=== PATIENT | male | born 1955 | race American Indian/Alaskan Native ===

== ENCOUNTER 2019-03-14 14:41 | Inpatient (IN) | payer MEDICARE, OTHER ==
[2019-03-14] MEDS ORDERED: ATIVAN ONE (14:53)
--- NOTE | 2019-03-14 15:06 | Emergency Department Report ---
ED General Adult HPI - General Chief complaint: Neuro Symptoms/Deficit Stated complaint: SEIZURE/ACUTE Time Seen by Provider: 03/14/19 14:55 Source: patient Mode of arrival: Stretcher Limitations: No Limitations - History of Present Illness Initial comments: 63 y.o. male with history of prostate cancer presents after EMS was called up to patient apparently had a seizure while at the [facility]. Upon arrival of EMS patient was initially conversational stating that he had just recently been to radiation for his prostate cancer. Patient stated he had no history of seizures. EMS states that patient's blood glucose was 600 and patient was also noted to be hypotensive. Upon arrival here in emergency department patient became nonverbal. Patient then became verbal but was slow to respond and complained of a headache and states he is unable to lift his arms or legs off the bed. - Related Data Allergies Allergy/AdvReac Type Severity Reaction Status Date / Time No Known Allergies Allergy Unverified 03/14/19 14:56 ED Review of Systems ROS: Stated complaint: SEIZURE/ACUTE Other details as noted in HPI Constitutional: denies: chills, fever Eyes: denies: eye pain, eye discharge, vision change ENT: denies: ear pain, throat pain Respiratory: denies: cough, shortness of breath, wheezing Cardiovascular: denies: chest pain, palpitations Endocrine: no symptoms reported Gastrointestinal: denies: abdominal pain, nausea, diarrhea Genitourinary: denies: urgency, dysuria Musculoskeletal: denies: back pain, joint swelling, arthralgia Skin: denies: rash, lesions Neurological: headache, weakness Psychiatric: denies: anxiety, depression Hematological/Lymphatic: denies: easy bleeding, easy bruising ED Physical Exam - General Limitations: No Limitations General appearance: other (awake uncomfortable mild distress) - Head Head exam: Present: atraumatic, normocephalic - Eye Eye exam: Present: normal appearance - ENT ENT exam: Present: mucous membranes dry - Neck Neck exam: Present: normal inspection - Respiratory Respiratory exam: Present: normal lung sounds bilaterally. Absent: respiratory distress - Cardiovascular Cardiovascular Exam: Present: regular rate, normal rhythm. Absent: systolic murmur, diastolic murmur, rubs, gallop - GI/Abdominal GI/Abdominal exam: Present: soft, normal bowel sounds - Rectal Rectal exam: Present: deferred - Extremities Exam Extremities exam: Present: normal inspection - Back Exam Back exam: Present: normal inspection - Neurological Exam Neurological exam: Present: alert, oriented X3, CN II-XII intact - Expanded Neurological Exam Expanded Patient oriented to: Present: person, place, time Cranial nerves: EOM's Intact: Normal, Facial Sensation: Normal, Facial Palsy with Forehead Movement: Normal Cerebellar function: Finger to Nose: Abnormal Right, Abnormal Left (unable to lift upper extremities to assess) Sensory exam: Upper Extremity Light Touch: Normal, Lower Extremity Light Touch: Normal Motor strength exam: RUE: 3 (patient states that he is unable to lift upper or lower extremities), LUE: 3, RLE: 3, LLE: 3 Best Eye Response (Joan): (4) open spontaneously Best Motor Response ([place]): (6) obeys commands Best Verbal Response (Joan): (5) oriented Joan Total: 15 - Psychiatric Psychiatric exam: Present: normal affect, normal mood - Skin Skin exam: Present: warm, dry, intact, normal color. Absent: rash ED Course Vital Signs 03/14/19 03/14/19 03/14/19 15:09 15:30 16:00 Temperature 98.0 F Pulse Rate 89 62 Respiratory 16 16 Rate Blood Pressure Blood Pressure 106/66 97/59 [Right] O2 Sat by Pulse 98 97 Oximetry 03/14/19 03/14/19 03/14/19 17:00 18:13 19:20 Temperature 98.1 F Pulse Rate 66 63 68 Respiratory 16 13 17 Rate Blood Pressure 120/79 Blood Pressure 102/66 121/76 [Right] O2 Sat by Pulse 98 98 99 Oximetry ED Medical Decision Making - Lab Data Result diagrams: 03/14/19 15:28 03/14/19 15:28 - EKG Data EKG shows normal: sinus rhythm Rate: normal - EKG Data When compared to previous EKG there are: no significant change - Medical Decision Making Patient presents initially with nonverbal status and inability to move his upper extremities or lower extremities. Patient was evaluated by telephone neurology. Patient was thought not to be a TPA candidate. About was that the patient can be admitted for seizure versus CVA workup. Patient also noted to be a new-onset diabetic. Patient was given fluid hydration while here in emergency department. Patient currently is oriented to person place and time and in no acute distress. - Differential Diagnosis dehydration; electrolyte abnormalities; seizures; intracranial bleed Critical Care Time: Yes Critical care time in (mins) excluding proc time.: 38 Critical care attestation.: If time is entered above; I have spent that time in minutes in the direct care of this critically ill patient, excluding procedure time. Critical time includes time spent on direct bedside care, physician consultation, and frequent reassessments. ED Disposition Clinical Impression: Seizure, Diabetes mellitus with hyperglycemia Disposition: OP ADMIT IP TO THIS HOSP Is pt being admited?: Yes Condition: Stable Instructions: Diabetes Mellitus Type 2 in Adults (ED) Referrals: PRIMARY CARE, [Primary Care Provider] - 3-5 Days Time of Disposition: 21:04 Print Language: GERMAN
[2019-03-14] MEDS ORDERED: NACL 0.9% 1000 ML 1,000 ML IV ONE ×2 (15:11→15:13)
[2019-03-14] MEDS ORDERED: HumuLIN R IV ONE (15:13)
--- NOTE | 2019-03-14 15:30 | Cat Scan Report ---
CT HEAD WITHOUT CONTRAST INDICATION / CLINICAL INFORMATION: MAIN: Stroke symptoms STROKE [id number]. TECHNIQUE: Axial imaging performed from the skull apex through the skull base without the use of cont rast. Sagittal and coronal reformatted images. All CT scans at this location are performed using CT dose reduction for ALARA by means of automated exposure control. COMPARISON: None available. FINDINGS: CEREBRAL PARENCHYMA: No significant abnormality. No acute territorial infarct. HEMORRHAGE: None. EXTRA-AXIAL SPACES: Normal in size and morphology for the patient's age. VENTRICULAR SYSTEM: Normal in size and morphology for the patient's age. MIDLINE SHIFT OR HERNIATION: None. CEREBELLUM / BRAINSTEM: No significant abnormality. CALVARIUM: No significant abnormality. ORBITS: Normal as visualized. PARANASAL SINUSES / MASTOID AIR CELLS: Normal as visualized. SOFT TISSUES of HEAD: No significant abnormality. ADDITIONAL FINDINGS: None. IMPRESSION: No acute intracranial abnormality. These findings were discussed with Dr. Bejarano in the emergency department at 1524 hours EST. Signer Name: Daniel Cates Jr, MD Signed: 03/14/2019 3:25 PM Workstation Name: [id number]
--- NOTE | 2019-03-14 15:33 | Emergency Department Report ---
ED Neuro Deficit HPI - General Chief Complaint: Neuro Symptoms/Deficit Stated Complaint: SEIZURE/ACUTE Time Seen by Provider: 03/14/19 14:55 Source: patient Mode of arrival: Stretcher Limitations: No Limitations - History of Present Illness Initial Comments: [employer] [facility] Date of Service: 03/14/2019 14:57:28 Impression: RO Acute Ischemic Stroke Comments: acute onset difficulty speaking after a spell while at the [facility] described as a seizure - he is slow but able to speak. DDx seizure with post ictal state vs encephalopathy. Recommend admission for stroke/seizure workup. Mechanism of Stroke: Possible Thromboembolic Possible Cardioembolic Small Vessel Disease Metrics: Last Known Well: 03/14/2019 15:00:00 [employer] Notification Time: 03/14/2019 14:56:05 Arrival Time: 03/14/2019 14:41:00 Stamp Time: 03/14/2019 14:57:28 Time First Login Attempt: 03/14/2019 15:02:39 Video Start Time: 03/14/2019 15:02:39 Symptoms: difficulty speaking NIHSS Start Assessment Time: 03/14/2019 15:16:34 Patient is not a candidate for tPA. Patient was not deemed candidate for tPA thrombolytics because of low suspicion for stroke; symptoms nearly resolved.. Video End Time: 03/14/2019 15:25:03 CT head showed no acute hemorrhage or acute core infarct. CT head was reviewed. Advanced imaging was not obtained as the presentation was not suggestive of Large Vessel Occlusive Disease. ER physician notified of the decision on thrombolytics management. Our recommendations are outlined below. Recommendations: start ASA if CT head is neg for hemorrhage. Recommended Scan: MRI Head MRA Head and Neck Without Contrast When Available - Stroke Protocol Lipid Panel to Be Obtained, if Not Done in the Last Three Months Therapies: Physical Therapy, Occupational Therapy, Speech Therapy Assessment When Applicable Dysphaghia Screen: Swallow Evaluation, Bedside NPO Until Swallow Evaluation DVT prophylaxis: Lovenox or LMW Heparin Disposition: Follow up with Teleneurology Follow up Sign Out: Discussed with Emergency Department Provider History of Present Illness: Patient is a 63 years old Male. Patient was brought by EMS for symptoms of difficulty speaking 63 yo man with a hx of prostate cancer who was witness to have a convulsion while at the [facility]. No reported hx of seizures. EMS was called and he was intially able to speak, but upon arrival to the ED he became nonverbal. No lateralizing weakness. He takes no blood thinners. CT head showed no acute hemorrhage or acute core infarct. CT head was reviewed. Examination: 1A: Level of Consciousness - Alert; keenly responsive + 0 1B: Ask Month and Age - Both Questions Right + 0 1C: Blink Eyes & Squeeze Hands - Performs Both Tasks + 0 2: Test Horizontal Extraocular Movements - Normal + 0 3: Test Visual Aviles - No Visual Loss + 0 4: Test Facial Palsy (Use Grimace if Obtunded) - Normal symmetry + 0 5A: Test Left Arm Motor Drift - Drift, but doesn't hit bed + 1 5B: Test Right Arm Motor Drift - Drift, but doesn't hit bed + 1 6A: Test Left Leg Motor Drift - Drift, but doesn't hit bed + 1 6B: Test Right Leg Motor Drift - Drift, but doesn't hit bed + 1 7: Test Limb Ataxia (FNF/Heel-Martinez) - No Ataxia + 0 8: Test Sensation - Normal; No sensory loss + 0 9: Test Language/Aphasia - Normal; No aphasia + 0 10: Test Dysarthria - Normal + 0 11: Test Extinction/Inattention - No abnormality + 0 NIHSS Score: 4 Patient was informed the Neurology Consult would happen via TeleHealth consult by way of interactive audio and video telecommunications and consented to receiving care in this manner. Due to the immediate potential for life-threatening deterioration due to underlying acute neurologic illness, I spent 35 minutes providing critical care. This time includes time for face to face visit via telemedicine, review of medical records, imaging studies and discussion of findings with providers, the patient and/or family. Dr Joe Wood [employer] - Related Data Allergies/Adverse Reactions: Allergies Allergy/AdvReac Type Severity Reaction Status Date / Time No Known Allergies Allergy Unverified 03/14/19 14:56 ED Review of Systems ROS: Stated complaint: SEIZURE/ACUTE Other details as noted in HPI Constitutional: denies: chills, fever Eyes: denies: eye pain, eye discharge, vision change ENT: denies: ear pain, throat pain Respiratory: denies: cough, shortness of breath, wheezing Cardiovascular: denies: chest pain, palpitations Endocrine: no symptoms reported Gastrointestinal: denies: abdominal pain, nausea, diarrhea Genitourinary: denies: urgency, dysuria Musculoskeletal: denies: back pain, joint swelling, arthralgia Skin: denies: rash, lesions Neurological: headache, weakness Psychiatric: denies: anxiety, depression Hematological/Lymphatic: denies: easy bleeding, easy bruising ED Neuro Physical Exam - General Limitations: No Limitations General appearance: other (awake uncomfortable mild distress) Suspected Stroke: Yes - NIHSS Assessment Interval: Baseline 1a. Level of Consciousness: alert/keenly responsive 1b. LOC Questions: answers both correctly 1c. LOC Commands: performs tasks correctly 2. Best Gaze: normal 3. Visual: no visual loss 4. Facial Palsy: normal symmetrical movement 5b. Motor Arm Right: drift 5a. Motor Arm Left: drift 6a. Motor Leg Left: drift 6b. Motor Leg Right: drift 7. Limb Ataxia: absent 8. Sensory: normal 9. Best Language: no aphasia 10. Dysarthria: normal 11. Extinction/Inattention: no abnormality Total Score: 4 Stroke Severity: Minor Stroke ED Course Vital Signs 03/14/19 15:09 Pulse Rate 89 Respiratory 16 Rate Blood Pressure 106/66 [Right] O2 Sat by Pulse 98 Oximetry Critical care attestation.: If time is entered above; I have spent that time in minutes in the direct care of this critically ill patient, excluding procedure time. ED Disposition Clinical Impression: Seizure Disposition: DC-09 OP ADMIT IP TO THIS HOSP Is pt being admited?: Yes Condition: Stable Referrals: PRIMARY CARE, [Primary Care Provider] - 3-5 Days
[2019-03-14 15:43] LABS: Hematocrit 41.2 % (35.5-45.6); Hemoglobin 14.1 gm/dl (11.8-15.2); Mean Corpuscular HGB Conc 34 % (32-34); Mean Corpuscular Volume 88 fl (84-94); Platelet Count 197 K/mm3 (140-440); Red Blood Count 4.66 M/mm3 (3.65-5.03); Red Cell Distribution Width 13.8 % (13.2-15.2)
[2019-03-14 15:54] LABS: INR 1.01 (0.87-1.13)
[2019-03-14 15:55] LABS: Partial Thromboplastin Time 22.8 Sec. (24.2-36.6)
[2019-03-14 15:56] LABS: Thrombin Time 20.3 Sec. (15.1-19.6)
[2019-03-14 16:53] LABS: Band Neutrophils # (Manual) 0.1 K/mm3; Basophils % (Manual) 0 % (0.0-1.8); Total Cells Counted 100
[2019-03-14 16:54] LABS: Ovalocytes Few; Poikilocytosis Few
[2019-03-14 17:20] LABS: Creatine Kinase MB 1.9 ng/mL (0.0-4.0)
[2019-03-14 18:07] LABS: Alanine Aminotransferase 48 units/L (7-56); Albumin 4.4 g/dL (3.9-5); BUN/Creatinine Ratio 24; Blood Urea Nitrogen 19 mg/dL (9-20); Calcium 10.2 mg/dL (8.4-10.2); Hemolysis Index 5
--- NOTE | 2019-03-14 18:24 | XRay Report ---
CHEST 1 VIEW INDICATION: chest pain. COMPARISON: None. FINDINGS: Support devices: None. Heart: Normal. Lungs/Pleura: No acute pulmonary or pleural findings. IMPRESSION: 1. No acute findings. Signer Name: Roshan Sinha MD Signed: 03/14/2019 6:19 PM Workstation Name: [id number]
[2019-03-14] MEDS ORDERED: MILK OF MAGNESIA PO PRN ×2 (20:40)
[2019-03-14] MEDS ORDERED: PHENERGAN PR PRN (20:40)
[2019-03-14] MEDS ORDERED: SODIUM CHLORIDE FLUSH SYRINGE 10 ML IV PRN ×2 (20:40)
[2019-03-14] MEDS ORDERED: TYLENOL PO PRN ×2 (20:40)
[2019-03-14] MEDS ORDERED: REGLAN PO PRN (20:40)
[2019-03-14] MEDS ORDERED: DULCOLAX PR PRN (20:40)
[2019-03-14] MEDS ORDERED: ZOFRAN IV PRN (20:40)
--- NOTE | 2019-03-14 20:53 | History and Physical Report ---
<JANAK MAKI - Last Filed: 03/15/19 00:05> History of Present Illness Date of examination: 03/14/19 Date of admission: 03/14/19 Chief complaint: Syncope History of present illness: Pt is a 63 year old male with PMHx of prostate cancer (diagnosed in 07/16, s/p chemo, on going radiation), HTN, HDL who was brought to the ER by EMS after a syncopal episode while in a [employer] shop. Pt states that he was on the chair having a hair cut when he felt very dizzy, when he gained consciousness, there were paramedics all over him. Pt states that he doesn't recall what happened or how long he was unconscious, EMS reports hyperglycemia (BG 600) and low blood pressure. Pt admits to a history of seizure disorder and states that he was very disoriented and confuse when he woke up. Pt states that he completed 22 days of radiation therapy today at [facility] just prior to the incidence. Pt states that he never had a similar episode of LOC, denies bladder or bowel incontinence reported, he denies palpitation, denies chest pain, denies diaphoresis, denies nausea, denies vomiting, denies recent illness. In the ER, pt c/o headache and weakness, his speech was slurred, a CT scan of the brain that was negative, teleneurology was consulted and recommended admission to r/o stroke and seizure. Past History Past Medical History: diabetes (new onset), hypertension, hyperlipidemia, seizures, other (neuropathy, prostate ca) Past Surgical History: No surgical history Social history: no significant social history Family history: no significant family history Medications and Allergies Allergies Allergy/AdvReac Type Severity Reaction Status Date / Time No Known Allergies Allergy Unverified 03/14/19 14:56 Home Medications Medication Instructions Recorded Confirmed Last Taken Type Gabapentin [Neurontin] 800 mg PO TID 03/14/19 03/14/19 Unknown History Lisinopril [Zestril] 20 mg PO QDAY 03/14/19 03/14/19 Unknown History Rosuvastatin Calcium 40 mg PO BID 03/14/19 03/14/19 Unknown History Review of Systems Neurological: weakness, syncope Exam - Constitutional Vitals: Temp Pulse Resp BP Pulse Ox 98.1 F 68 17 121/76 99 03/14/19 19:20 03/14/19 19:20 03/14/19 19:20 03/14/19 19:20 03/14/19 19:20 General appearance: Present: no acute distress - EENT Eyes: Present: EOM intact ENT: hearing intact - Neck Neck: Present: normal ROM - Respiratory Respiratory effort: normal Respiratory: bilateral: CTA - Cardiovascular Rhythm: regular Heart Sounds: Present: S1 & S2 - Extremities Extremities: no ischemia, No edema Peripheral Pulses: within normal limits - Abdominal General gastrointestinal: Present: non-tender, non-distended Male genitourinary: Present: deferred - Rectal Rectal Exam: deferred - Integumentary Integumentary: Present: warm, dry - Musculoskeletal Musculoskeletal: strength equal bilaterally - Psychiatric Psychiatric: cooperative - Neurologic Neurologic: moves all extremities Results - Labs CBC & Chem 7: 03/14/19 15:28 03/14/19 15:28 Labs: Laboratory Last Values WBC 5.8 K/mm3 (4.5-11.0) 03/14/19 15:28 RBC 4.66 M/mm3 (3.65-5.03) 03/14/19 15:28 Hgb 14.1 gm/dl (11.8-15.2) 03/14/19 15:28 Hct 41.2 % (35.5-45.6) 03/14/19 15:28 MCV 88 fl (84-94) 03/14/19 15:28 MCH 30 pg (28-32) 03/14/19 15:28 MCHC 34 % (32-34) 03/14/19 15:28 RDW 13.8 % (13.2-15.2) 03/14/19 15:28 Plt Count 197 K/mm3 (140-440) 03/14/19 15:28 Add Manual Diff Complete 03/14/19 15:28 Total Counted 100 03/14/19 15:28 Seg Neuts % (Manual) 67.0 % (40.0-70.0) 03/14/19 15:28 Band Neutrophils % 2.0 % 03/14/19 15:28 Lymphocytes % (Manual) 19.0 % (13.4-35.0) 03/14/19 15:28 Reactive Lymphs % (Man) 0 % 03/14/19 15:28 Monocytes % (Manual) 7.0 % (0.0-7.3) 03/14/19 15:28 Eosinophils % (Manual) 3.0 % (0.0-4.3) 03/14/19 15:28 Basophils % (Manual) 0 % (0.0-1.8) 03/14/19 15:28 Metamyelocytes % 2.0 % 03/14/19 15:28 Myelocytes % 0 % 03/14/19 15:28 Promyelocytes % 0 % 03/14/19 15:28 Blast Cells % 0 % 03/14/19 15:28 Nucleated RBC % Not Reportable 03/14/19 15:28 Seg Neutrophils # Man 3.9 K/mm3 (1.8-7.7) 03/14/19 15:28 Band Neutrophils # 0.1 K/mm3 03/14/19 15:28 Lymphocytes # (Manual) 1.1 K/mm3 (1.2-5.4) L 03/14/19 15:28 Abs React Lymphs (Man) 0.0 K/mm3 03/14/19 15:28 Monocytes # (Manual) 0.4 K/mm3 (0.0-0.8) 03/14/19 15:28 Eosinophils # (Manual) 0.2 K/mm3 (0.0-0.4) 03/14/19 15:28 Basophils # (Manual) 0.0 K/mm3 (0.0-0.1) 03/14/19 15:28 Metamyelocytes # 0.1 K/mm3 03/14/19 15:28 Myelocytes # 0.0 K/mm3 03/14/19 15:28 Promyelocytes # 0.0 K/mm3 03/14/19 15:28 Blast Cells # 0.0 K/mm3 03/14/19 15:28 WBC Morphology Not Reportable 03/14/19 15:28 Hypersegmented Neuts Not Reportable 03/14/19 15:28 Hyposegmented Neuts Not Reportable 03/14/19 15:28 Hypogranular Neuts Not Reportable 03/14/19 15:28 Smudge Cells Not Reportable 03/14/19 15:28 Toxic Granulation Not Reportable 03/14/19 15:28 Toxic Vacuolation Not Reportable 03/14/19 15:28 Dohle Bodies Not Reportable 03/14/19 15:28 Pelger-Huet Anomaly Not Reportable 03/14/19 15:28 Jhonny Rods Not Reportable 03/14/19 15:28 Platelet Estimate Appears normal 03/14/19 15:28 Clumped Platelets Not Reportable 03/14/19 15:28 Plt Clumps, EDTA Not Reportable 03/14/19 15:28 Large Platelets Not Reportable 03/14/19 15:28 Giant Platelets Not Reportable 03/14/19 15:28 Platelet Satelliting Not Reportable 03/14/19 15:28 Plt Morphology Comment Not Reportable 03/14/19 15:28 RBC Morphology Not Reportable 03/14/19 15:28 Dimorphic RBCs Not Reportable 03/14/19 15:28 Polychromasia Not Reportable 03/14/19 15:28 Hypochromasia Not Reportable 03/14/19 15:28 Poikilocytosis Few 03/14/19 15:28 Anisocytosis Not Reportable 03/14/19 15:28 Microcytosis Not Reportable 03/14/19 15:28 Macrocytosis Not Reportable 03/14/19 15:28 Spherocytes Not Reportable 03/14/19 15:28 Pappenheimer Bodies Not Reportable 03/14/19 15:28 Sickle Cells Not Reportable 03/14/19 15:28 Target Cells Not Reportable 03/14/19 15:28 Tear Drop Cells Not Reportable 03/14/19 15:28 Ovalocytes Few 03/14/19 15:28 Helmet Cells Not Reportable 03/14/19 15:28 Con[place]-Half Moon Bodies Not Reportable 03/14/19 15:28 [place] Rings Not Reportable 03/14/19 15:28 [place] Cells Not Reportable 03/14/19 15:28 Bite Cells Not Reportable 03/14/19 15:28 Crenated Cell Not Reportable 03/14/19 15:28 Elliptocytes Not Reportable 03/14/19 15:28 Acanthocytes (Spur) Not Reportable 03/14/19 15:28 Rouleaux Not Reportable 03/14/19 15:28 Hemoglobin C Crystals Not Reportable 03/14/19 15:28 Schistocytes Not Reportable 03/14/19 15:28 Malaria parasites Not Reportable 03/14/19 15:28 Jaleel Bodies Not Reportable 03/14/19 15:28 Hem Pathologist Commnt No 03/14/19 15:28 PT 13.0 Sec. (12.2-14.9) 03/14/19 15:28 INR 1.01 (0.87-1.13) 03/14/19 15:28 APTT 22.8 Sec. (24.2-36.6) L 03/14/19 15:28 Thrombin Time 20.3 Sec. (15.1-19.6) H 03/14/19 15:28 Sodium 133 mmol/L (137-145) L 03/14/19 15:28 Potassium 4.9 mmol/L (3.6-5.0) 03/14/19 15:28 Chloride 96.2 mmol/L (98-107) L 03/14/19 15:28 Carbon Dioxide 20 mmol/L (22-30) L 03/14/19 15:28 Anion Gap 22 mmol/L 03/14/19 15:28 BUN 19 mg/dL (9-20) 03/14/19 15:28 Creatinine 0.8 mg/dL (0.8-1.5) 03/14/19 15:28 Estimated GFR > 60 ml/min 03/14/19 15:28 BUN/Creatinine Ratio 24 % 03/14/19 15:28 Glucose 480 mg/dL (75-100) H 03/14/19 15:28 POC Glucose 342 (70-105) H 03/14/19 17:18 Calcium 10.2 mg/dL (8.4-10.2) 03/14/19 15:28 Total Bilirubin 0.60 mg/dL (0.1-1.2) 03/14/19 15:28 AST 28 units/L (5-40) 03/14/19 15:28 ALT 48 units/L (7-56) 03/14/19 15:28 Alkaline Phosphatase 91 units/L (35-129) 03/14/19 15:28 Total Creatine Kinase 142 units/L (55-170) 03/14/19 15:28 CK-MB (CK-2) 1.9 ng/mL (0.0-4.0) 03/14/19 15:28 CK-MB (CK-2) Rel Index 1.3 (0-4) 03/14/19 15:28 Troponin T < 0.010 ng/mL (0.00-0.029) 03/14/19 15:28 Total Protein 7.9 g/dL (6.3-8.2) 03/14/19 15:28 Albumin 4.4 g/dL (3.9-5) 03/14/19 15:28 Albumin/Globulin Ratio 1.3 % 03/14/19 15:28 Plasma/Serum Alcohol < 0.01 % (0-0.07) 03/14/19 15:28 Assessment and Plan Assessment and plan: 1. Acute TIA/ r/o CVA vr seizure disorder 2. Prostate cancer (s/p chemo, radiation) 3. Dehydration 4. Mild VEE (due to dehydration 5. HONKA (blood glucose, New onset DM) 6. Hypotension 7. H/o seizure disorder 8. H/o HTN 9. HDL (on statin) 10. Neuropathy Plan: Pt is admitted for TIA to r/o stroke Stroke prtocol was initiated Start IVF for hydration renal transfusion Recheck BMP in am Glycemic management with insulin per sliding scale Resume home meds including hy dose statin, ASA Supportive care DVT prophylaxis with SD Advance Directives: Yes VTE prophylaxis?: Mechanical Plan of care discussed with patient/family: Yes <JC LUGO - Last Filed: 03/15/19 01:52> History of Present Illness Date of admission: 03/14/19 20:40 Medications and Allergies Active Meds: Active Medications Acetaminophen (Tylenol) 650 mg PO Q4H PRN PRN Reason: Pain, Mild (1-3) Aspirin (Aspirin) 325 mg PO QDAY [facility] Last Admin: 03/14/19 21:10 Dose: 325 mg Documented by: Atorvastatin Calcium (Lipitor) 40 mg PO QHS [facility] Bisacodyl (Dulcolax) 10 mg [place] QDAY PRN PRN Reason: Constipation Famotidine (Pepcid) 20 mg IV BID [facility] Last Admin: 03/14/19 23:20 Dose: 20 mg Documented by: Gabapentin (Neurontin) 800 mg PO TID [facility] Insulin Glargine (Lantus) 20 units SUB-Q QHS [facility] Last Admin: 03/14/19 23:48 Dose: 20 units Documented by: Insulin Human Lispro (Humalog) 0 unit SUB-Q [facility]; Protocol Last Admin: 03/14/19 23:19 Dose: 10 unit Documented by: Lisinopril (Zestril) 20 mg PO QDAY [facility] Magnesium Hydroxide (Milk Of Magnesia) 30 ml PO Q4H PRN PRN Reason: Constipation Metoclopramide HCl (Reglan) 10 mg PO Q6H PRN PRN Reason: Nausea And Vomiting Ondansetron HCl (Zofran) 4 mg IV Q8H PRN PRN Reason: Nausea And Vomiting Promethazine HCl (Phenergan) 25 mg [place] Q6H PRN PRN Reason: Nausea And Vomiting Sodium Chloride (Sodium Chloride Flush Syringe 10 Ml) 10 ml IV BID [facility] Last Admin: 03/14/19 23:20 Dose: 10 ml Documented by: Sodium Chloride (Sodium Chloride Flush Syringe 10 Ml) 10 ml IV PRN PRN PRN Reason: LINE FLUSH Sodium Chloride (Sodium Chloride Flush Syringe 10 Ml) 10 ml IV PRN PRN PRN Reason: LINE FLUSH Exam - Constitutional Vitals: Temp Pulse Resp BP Pulse Ox 97.7 F 59 L 18 126/70 98 03/14/19 22:28 03/14/19 22:28 03/14/19 22:28 03/14/19 22:28 03/14/19 22:28 Results - Labs CBC & Chem 7: 03/14/19 15:28 03/14/19 15:28 Labs: Laboratory Last Values WBC 5.8 K/mm3 (4.5-11.0) 03/14/19 15:28 RBC 4.66 M/mm3 (3.65-5.03) 03/14/19 15:28 Hgb 14.1 gm/dl (11.8-15.2) 03/14/19 15:28 Hct 41.2 % (35.5-45.6) 03/14/19 15:28 MCV 88 fl (84-94) 03/14/19 15:28 MCH 30 pg (28-32) 03/14/19 15:28 MCHC 34 % (32-34) 03/14/19 15:28 RDW 13.8 % (13.2-15.2) 03/14/19 15:28 Plt Count 197 K/mm3 (140-440) 03/14/19 15:28 Add Manual Diff Complete 03/14/19 15:28 Total Counted 100 03/14/19 15:28 Seg Neuts % (Manual) 67.0 % (40.0-70.0) 03/14/19 15:28 Band Neutrophils % 2.0 % 03/14/19 15:28 Lymphocytes % (Manual) 19.0 % (13.4-35.0) 03/14/19 15:28 Reactive Lymphs % (Man) 0 % 03/14/19 15:28 Monocytes % (Manual) 7.0 % (0.0-7.3) 03/14/19 15:28 Eosinophils % (Manual) 3.0 % (0.0-4.3) 03/14/19 15:28 Basophils % (Manual) 0 % (0.0-1.8) 03/14/19 15:28 Metamyelocytes % 2.0 % 03/14/19 15:28 Myelocytes % 0 % 03/14/19 15:28 Promyelocytes % 0 % 03/14/19 15:28 Blast Cells % 0 % 03/14/19 15:28 Nucleated RBC % Not Reportable 03/14/19 15:28 Seg Neutrophils # Man 3.9 K/mm3 (1.8-7.7) 03/14/19 15:28 Band Neutrophils # 0.1 K/mm3 03/14/19 15:28 Lymphocytes # (Manual) 1.1 K/mm3 (1.2-5.4) L 03/14/19 15:28 Abs React Lymphs (Man) 0.0 K/mm3 03/14/19 15:28 Monocytes # (Manual) 0.4 K/mm3 (0.0-0.8) 03/14/19 15:28 Eosinophils # (Manual) 0.2 K/mm3 (0.0-0.4) 03/14/19 15:28 Basophils # (Manual) 0.0 K/mm3 (0.0-0.1) 03/14/19 15:28 Metamyelocytes # 0.1 K/mm3 03/14/19 15:28 Myelocytes # 0.0 K/mm3 03/14/19 15:28 Promyelocytes # 0.0 K/mm3 03/14/19 15:28 Blast Cells # 0.0 K/mm3 03/14/19 15:28 WBC Morphology Not Reportable 03/14/19 15:28 Hypersegmented Neuts Not Reportable 03/14/19 15:28 Hyposegmented Neuts Not Reportable 03/14/19 15:28 Hypogranular Neuts Not Reportable 03/14/19 15:28 Smudge Cells Not Reportable 03/14/19 15:28 Toxic Granulation Not Reportable 03/14/19 15:28 Toxic Vacuolation Not Reportable 03/14/19 15:28 Dohle Bodies Not Reportable 03/14/19 15:28 Pelger-Huet Anomaly Not Reportable 03/14/19 15:28 Jhonny Rods Not Reportable 03/14/19 15:28 Platelet Estimate Appears normal 03/14/19 15:28 Clumped Platelets Not Reportable 03/14/19 15:28 Plt Clumps, EDTA Not Reportable 03/14/19 15:28 Large Platelets Not Reportable 03/14/19 15:28 Giant Platelets Not Reportable 03/14/19 15:28 Platelet Satelliting Not Reportable 03/14/19 15:28 Plt Morphology Comment Not Reportable 03/14/19 15:28 RBC Morphology Not Reportable 03/14/19 15:28 Dimorphic RBCs Not Reportable 03/14/19 15:28 Polychromasia Not Reportable 03/14/19 15:28 Hypochromasia Not Reportable 03/14/19 15:28 Poikilocytosis Few 03/14/19 15:28 Anisocytosis Not Reportable 03/14/19 15:28 Microcytosis Not Reportable 03/14/19 15:28 Macrocytosis Not Reportable 03/14/19 15:28 Spherocytes Not Reportable 03/14/19 15:28 Pappenheimer Bodies Not Reportable 03/14/19 15:28 Sickle Cells Not Reportable 03/14/19 15:28 Target Cells Not Reportable 03/14/19 15:28 Tear Drop Cells Not Reportable 03/14/19 15:28 Ovalocytes Few 03/14/19 15:28 Helmet Cells Not Reportable 03/14/19 15:28 [place]-Half [place] Bodies Not Reportable 03/14/19 15:28 [place] Rings Not Reportable 03/14/19 15:28 [place] Cells Not Reportable 03/14/19 15:28 Bite Cells Not Reportable 03/14/19 15:28 Crenated Cell Not Reportable 03/14/19 15:28 Elliptocytes Not Reportable 03/14/19 15:28 Acanthocytes (Spur) Not Reportable 03/14/19 15:28 Rouleaux Not Reportable 03/14/19 15:28 Hemoglobin C Crystals Not Reportable 03/14/19 15:28 Schistocytes Not Reportable 03/14/19 15:28 Malaria parasites Not Reportable 03/14/19 15:28 Jaleel Bodies Not Reportable 03/14/19 15:28 Hem Pathologist Commnt No 03/14/19 15:28 PT 13.0 Sec. (12.2-14.9) 03/14/19 15:28 INR 1.01 (0.87-1.13) 03/14/19 15:28 APTT 22.8 Sec. (24.2-36.6) L 03/14/19 15:28 Thrombin Time 20.3 Sec. (15.1-19.6) H 03/14/19 15:28 Sodium 133 mmol/L (137-145) L 03/14/19 15:28 Potassium 4.9 mmol/L (3.6-5.0) 03/14/19 15:28 Chloride 96.2 mmol/L (98-107) L 03/14/19 15:28 Carbon Dioxide 20 mmol/L (22-30) L 03/14/19 15:28 Anion Gap 22 mmol/L 03/14/19 15:28 BUN 19 mg/dL (9-20) 03/14/19 15:28 Creatinine 0.8 mg/dL (0.8-1.5) 03/14/19 15:28 Estimated GFR > 60 ml/min 03/14/19 15:28 BUN/Creatinine Ratio 24 % 03/14/19 15:28 Glucose 480 mg/dL (75-100) H 03/14/19 15:28 POC Glucose 401 (70-105) H 03/14/19 22:17 Calcium 10.2 mg/dL (8.4-10.2) 03/14/19 15:28 Total Bilirubin 0.60 mg/dL (0.1-1.2) 03/14/19 15:28 AST 28 units/L (5-40) 03/14/19 15:28 ALT 48 units/L (7-56) 03/14/19 15:28 Alkaline Phosphatase 91 units/L (35-129) 03/14/19 15:28 Total Creatine Kinase 142 units/L (55-170) 03/14/19 15:28 CK-MB (CK-2) 1.9 ng/mL (0.0-4.0) 03/14/19 15:28 CK-MB (CK-2) Rel Index 1.3 (0-4) 03/14/19 15: Troponin T < 0.010 ng/mL (0.00-0.029) 03/14/19 15:28 Total Protein 7.9 g/dL (6.3-8.2) 03/14/19 15: Albumin 4.4 g/dL (3.9-5) 03/14/19 15: Albumin/Globulin Ratio 1.3 % 03/14/19 15:28 Urine Color Yellow (Yellow) 03/14/19 21:00 Urine Turbidity Clear (Clear) 03/14/19 21:00 Urine pH 6.0 (5.0-7.0) 03/14/19 21:00 Ur Specific [place] 1.030 (1.003-1.030) 03/14/19 21:00 Urine Protein <15 mg/dl mg/dL (Negative) 03/14/19 21:00 Urine Glucose (UA) >=500 mg/dL (Negative) 03/14/19 21:00 Urine Ketones 20 mg/dL (Negative) 03/14/19 21:00 Urine Blood Neg (Negative) 03/14/19 21:00 Urine Nitrite Neg (Negative) 03/14/19 21:00 Urine Bilirubin Neg (Negative) 03/14/19 21:00 Urine Urobilinogen < 2.0 mg/dL (<2.0) 03/14/19 21:00 Ur Leukocyte Esterase Neg (Negative) 03/14/19 21:00 Urine WBC (Auto) 1.0 /HPF (0.0-6.0) 03/14/19 21:00 Urine RBC (Auto) 2.0 /HPF (0.0-6.0) 03/14/19 21:00 Urine Bacteria (Auto) 1+ /HPF (Negative) 03/14/19 21:00 Plasma/Serum Alcohol < 0.01 % (0-0.07) 03/14/19 15:28 Assessment and Plan Assessment and plan: 63-year-old man with a history of hypertension, hyperlipidemia prostate cancer on radiation treatment comes emergency room because while he was at the [facility] he felt weak, dizzy and he was incoherent and passed out. He admits to polyuria, polydipsia. He arrived in the emergency room he had generalized weakness, unable to move his arms or legs or his entire body. Blood sugar was elevated. New-onset diabetes, symptoms less likely suggestive of CVA. Tele- neurology recommending stroke workup, start insulin, check hemoglobin A1c, consult neurology.
[2019-03-14] MEDS ORDERED: NACL 0.9% 1000 ML 1,000 ML ONE (21:02)
[2019-03-14] MEDS: ASPIRIN PO SCH (21:10)
[2019-03-14 21:47] LABS: Bacteria,Urine 1+ /HPF (Negative); Bilirubin,Urine NEG (Negative); Blood,Urine NEG (Negative); Color,Urine Yellow (Yellow); Protein,Urine <15 mg/dL mg/dL (Negative); Urobilinogen,Urine < 2.0 mg/dL (<2.0)
[2019-03-14] MEDS ORDERED: LANTUS SUB-Q SCH (23:00)
[2019-03-14] MEDS: HumaLOG SUB-Q SCH (23:19)
[2019-03-14] MEDS: PEPCID IV SCH (23:20)
[2019-03-14] MEDS: SODIUM CHLORIDE FLUSH SYRINGE 10 ML IV SCH (23:20)
[2019-03-15 05:30] LABS: Hematocrit 37.4 % (35.5-45.6); Hemoglobin 13.1 gm/dl (11.8-15.2); Mean Corpuscular HGB Conc 35 % (32-34); Mean Corpuscular Volume 88 fl (84-94); Platelet Count 165 K/mm3 (140-440); Red Blood Count 4.28 M/mm3 (3.65-5.03); Red Cell Distribution Width 13.9 % (13.2-15.2)
[2019-03-15 06:22] LABS: Chol/HDL Ratio 5.87 %
[2019-03-15] MEDS: HumaLOG SUB-Q SCH ×5 (09:09→21:48)
[2019-03-15 09:10] LABS: Band Neutrophils # (Manual) 0.1 K/mm3; Basophils % (Manual) 0 % (0.0-1.8); Platelet Clumps Few; Total Cells Counted 100
[2019-03-15 09:11] LABS: Anisocytosis 1+; Platelet Estimate Cons
[2019-03-15] MEDS: GABAPENTIN PO SCH ×3 (09:11→20:51)
[2019-03-15] MEDS: ASPIRIN PO SCH (09:11)
[2019-03-15] MEDS: PEPCID IV SCH ×2 (09:11→21:50)
[2019-03-15] MEDS: ZESTRIL PO SCH (09:11)
[2019-03-15] MEDS: SODIUM CHLORIDE FLUSH SYRINGE 10 ML IV SCH ×2 (09:12→21:50)
[2019-03-15] MEDS ORDERED: ATIVAN IV PRN (11:07)
--- NOTE | 2019-03-15 11:30 | Consultation ---
History of Present Illness Consult date: 03/15/19 History of present illness: I have dictated a consult note on this patient there is no evidence of postate cancer on the CT the radiation therapy for prostate does not include brain stronly suspect the seizure related to diabetes see blood sugar over 600 per EMS Past History Past Medical History: diabetes (new onset), hypertension, hyperlipidemia, seizures, other (neuropathy, prostate ca) Past Surgical History: No surgical history Social history: no significant social history Family history: no significant family history Medications and Allergies Allergies Allergy/AdvReac Type Severity Reaction Status Date / Time No Known Allergies Allergy Unverified 03/14/19 14:56 Home Medications Medication Instructions Recorded Confirmed Last Taken Type Gabapentin [Neurontin] 800 mg PO TID 03/14/19 03/14/19 Unknown History Lisinopril [Zestril] 20 mg PO QDAY 03/14/19 03/14/19 Unknown History Rosuvastatin Calcium 40 mg PO BID 03/14/19 03/14/19 Unknown History Active Meds: Active Medications Acetaminophen (Tylenol) 650 mg PO Q4H PRN PRN Reason: Pain, Mild (1-3) Aspirin (Aspirin) 325 mg PO QDAY [facility] Last Admin: 03/15/19 09:11 Dose: 325 mg Documented by: Atorvastatin Calcium (Lipitor) 40 mg PO QHS [facility] Bisacodyl (Dulcolax) 10 mg [place] QDAY PRN PRN Reason: Constipation Famotidine (Pepcid) 20 mg IV BID [facility] Last Admin: 03/15/19 09:11 Dose: 20 mg Documented by: Gabapentin (Neurontin) 800 mg PO TID [facility] Last Admin: 03/15/19 09:11 Dose: 800 mg Documented by: Insulin Glargine (Lantus) 8 units SUB-Q QHS [facility] Insulin Human Lispro (Humalog) 0 unit SUB-Q [facility]; Protocol Last Admin: 03/15/19 09:09 Dose: 8 unit Documented by: Lisinopril (Zestril) 20 mg PO QDAY [facility] Last Admin: 03/15/19 09:11 Dose: 20 mg Documented by: Lorazepam (Ativan) 2 mg IV Q4H PRN PRN Reason: Agitation Magnesium Hydroxide (Milk Of Magnesia) 30 ml PO Q4H PRN PRN Reason: Constipation Metoclopramide HCl (Reglan) 10 mg PO Q6H PRN PRN Reason: Nausea And Vomiting Ondansetron HCl (Zofran) 4 mg IV Q8H PRN PRN Reason: Nausea And Vomiting Promethazine HCl (Phenergan) 25 mg [place] Q6H PRN PRN Reason: Nausea And Vomiting Sodium Chloride (Sodium Chloride Flush Syringe 10 Ml) 10 ml IV BID [facility] Last Admin: 03/15/19 09:12 Dose: 10 ml Documented by: Sodium Chloride (Sodium Chloride Flush Syringe 10 Ml) 10 ml IV PRN PRN PRN Reason: LINE FLUSH Sodium Chloride (Sodium Chloride Flush Syringe 10 Ml) 10 ml IV PRN PRN PRN Reason: LINE FLUSH Physical Examination - Vital Signs Vital Signs: Vital Signs Pulse Resp BP Pulse Ox 89 16 106/66 98 03/14/19 15:09 03/14/19 15:09 03/14/19 15:09 03/14/19 15:09 Results - Laboratory Findings CBC and BMP: 03/15/19 04:43 03/14/19 15:28 Abnormal Lab Findings: Abnormal Labs 03/14/19 03/14/19 03/14/19 15:28 15:28 15:28 MCHC Lymphocytes # (Manual) 1.1 L APTT 22.8 L Thrombin Time 20.3 H Sodium 133 L Chloride 96.2 L Carbon Dioxide 20 L Glucose 480 H POC Glucose Hemoglobin A1c Triglycerides HDL Cholesterol 03/14/19 03/14/19 03/14/19 16:02 17:18 22:17 MCHC Lymphocytes # (Manual) APTT Thrombin Time Sodium Chloride Carbon Dioxide Glucose POC Glucose 382 H 342 H 401 H Hemoglobin A1c Triglycerides HDL Cholesterol 03/15/19 03/15/19 03/15/19 04:43 04:43 04:43 MCHC 35 H Lymphocytes # (Manual) APTT Thrombin Time Sodium Chloride Carbon Dioxide Glucose POC Glucose Hemoglobin A1c 12.9 H Triglycerides 236 H HDL Cholesterol 33 L 03/15/19 08:28 MCHC Lymphocytes # (Manual) APTT Thrombin Time Sodium Chloride Carbon Dioxide Glucose POC Glucose 327 H Hemoglobin A1c Triglycerides HDL Cholesterol
--- NOTE | 2019-03-15 14:33 | Magnetic Resonance Report ---
MR brain wo con INDICATION / CLINICAL INFORMATION: 63 years Male; r/o cva. TECHNIQUE: Multiplanar, multisequence MR images of the brain were obtained. Motion artifact COMPARISON: CT - 01/04/2019 FINDINGS: BRAIN / INTRACRANIAL CONTENTS: Small arachnoid cyst is seen superficial to the left paracentral lobul e-of no clinical significance. Minimal cerebral atrophy. No significant hippocampal atrophy appreciated on high-resolution coronal T 2 imaging. There are [id number] areas of increased signal intensity on FLAIR imaging in the white matter o f the cerebral hemispheres. These are nonspecific findings and may be related to microangiopathy (hyp ertension, diabetes, atherosclerosis), given the patient's age. Otherwise, no acute ischemia, acute hemorrhage, or hydrocephalus. CRANIOCERVICAL JUNCTION: No significant abnormality. VASCULAR FLOW-VOIDS: No significant abnormality. ORBITS: No significant abnormality of visualized orbits. SINUSES / MASTOIDS: No significant abnormality the visualized paranasal sinuses or mastoid air cells. ADDITIONAL FINDINGS: None. IMPRESSION: 1. No focal mass, hemorrhage, hydrocephalus, or acute ischemia. Signer Name: Estiven Barclay MD, III Signed: 03/15/2019 2:28 PM Workstation Name: [id number]
--- NOTE | 2019-03-15 14:45 | Magnetic Resonance Report ---
MR MRA/MRV head wo con INDICATION / CLINICAL INFORMATION: 63 years Male; stroke. TECHNIQUE: 3-D time of flight. NASCET type criteria used to evaluate stenoses. Mild motion artifact. COMPARISON: None available. FINDINGS: INTERNAL CAROTID ARTERIES: No significant narrowing appreciated. VERTEBROBASILAR SYSTEM: No significant narrowing appreciated. Right vertebral artery is dominant. DISTAL BRANCHES: Distal branches of the anterior, middle, and posterior cerebral arteries are fairly symmetric in appearance and number. Areas of minimal narrowing in MCA trifurcation branches and dista l JAMES branches cannot be excluded. ANEURYSM: None identified. IMPRESSION: No dominant stenosis on this MRA of the brain. Areas of mild narrowing may be present. Signer Name: Estiven Barclay MD, III Signed: 03/15/2019 2:41 PM Workstation Name: [id number]
--- NOTE | 2019-03-15 14:49 | Progress Note ---
Assessment and Plan 1. Acute syncope due to hyperglycemia - acute CVA ruled out with negative workup 2. Prostate cancer (s/p chemo, radiation) 3. Dehydration with hyperglycemia 4. Mild VEE (due to dehydration) 5. HONKA (blood glucose, New onset DM) 6. Hypotension due to Dehydration 7. H/o seizure disorder 8. H/o HTN 9. HDL (on statin) 10. Neuropathy Plan: Pt is admitted for TIA to r/o stroke - ruled out, symptoms likely from syncope with hyperglycemia negative CT head MRI brain, neuro following the pt cont IVF for hydration renal transfusion Glycemic management with insulin per sliding scale - also start long acting in low dose to prevent hypoglycemia Resumed home meds including high dose statin, ASA cont Supportive care, diet education DVT prophylaxis with SD Subjective Date of service: 03/15/19 Interval history: Patient seen and examined No acute event o/n BG at high 300s denies chest pain or SOB Objective - Constitutional Vitals: Vital Signs - 12hr 03/15/19 03/15/19 03/15/19 03:37 08:21 08:31 Temperature 97.8 F 98.0 F Pulse Rate 54 L 65 Pulse Rate [ Apical] Pulse Rate [ From Monitor] Respiratory 18 18 Rate Blood Pressure 108/64 134/84 O2 Sat by Pulse 99 97 98 Oximetry 03/15/19 03/15/19 03/15/19 09:11 10:00 10:21 Temperature Pulse Rate 65 51 L Pulse Rate [ 68 Apical] Pulse Rate [ 72 From Monitor] Respiratory 20 Rate Blood Pressure 134/84 O2 Sat by Pulse 98 Oximetry General appearance: Present: no acute distress, well-nourished - EENT Eyes: PERRL, EOM intact ENT: hearing intact, clear oral mucosa Ears: bilateral: normal - Neck Neck: supple, normal ROM - Respiratory Respiratory effort: normal Respiratory: bilateral: CTA - Cardiovascular Rhythm: regular Heart Sounds: Present: S1 & S2. Absent: gallop, rub Extremities: pulses intact, No edema, normal color, Full ROM - Gastrointestinal General gastrointestinal: Present: soft, non-tender, non-distended, normal bowel sounds - Integumentary Integumentary: clear, warm, dry - Musculoskeletal Musculoskeletal: 1, strength equal bilaterally - Neurologic Neurologic: moves all extremities - Psychiatric Psychiatric: memory intact, appropriate mood/affect, intact judgment & insight - Labs CBC & Chem 7: 03/15/19 04:43 03/16/19 06:52 Labs: Abnormal lab results 03/14/19 03/14/19 03/14/19 Range/Units 15:28 15:28 15:28 MCHC (32-34) % Lymphocytes # (Manual) 1.1 L (1.2-5.4) K/mm3 APTT 22.8 L (24.2-36.6) Sec. Thrombin Time 20.3 H (15.1-19.6) Sec. Sodium 133 L (137-145) mmol/L Chloride 96.2 L (98-107) mmol/L Carbon Dioxide 20 L (22-30) mmol/L Glucose 480 H (75-100) mg/dL POC Glucose (70-105) Hemoglobin A1c (4-6) % Triglycerides (2-149) mg/dL HDL Cholesterol (40-59) mg/dL 03/14/19 03/14/19 03/14/19 Range/Units 16:02 17:18 22:17 MCHC (32-34) % Lymphocytes # (Manual) (1.2-5.4) K/mm3 APTT (24.2-36.6) Sec. Thrombin Time (15.1-19.6) Sec. Sodium (137-145) mmol/L Chloride (98-107) mmol/L Carbon Dioxide (22-30) mmol/L Glucose (75-100) mg/dL POC Glucose 382 H 342 H 401 H (70-105) Hemoglobin A1c (4-6) % Triglycerides (2-149) mg/dL HDL Cholesterol (40-59) mg/dL 03/15/19 03/15/19 03/15/19 Range/Units 04:43 04:43 04:43 MCHC 35 H (32-34) % Lymphocytes # (Manual) (1.2-5.4) K/mm3 APTT (24.2-36.6) Sec. Thrombin Time (15.1-19.6) Sec. Sodium (137-145) mmol/L Chloride (98-107) mmol/L Carbon Dioxide (22-30) mmol/L Glucose (75-100) mg/dL POC Glucose (70-105) Hemoglobin A1c 12.9 H (4-6) % Triglycerides 236 H (2-149) mg/dL HDL Cholesterol 33 L (40-59) mg/dL 03/15/19 Range/Units 08:28 MCHC (32-34) % Lymphocytes # (Manual) (1.2-5.4) K/mm3 APTT (24.2-36.6) Sec. Thrombin Time (15.1-19.6) Sec. Sodium (137-145) mmol/L Chloride (98-107) mmol/L Carbon Dioxide (22-30) mmol/L Glucose (75-100) mg/dL POC Glucose 327 H (70-105) Hemoglobin A1c (4-6) % Triglycerides (2-149) mg/dL HDL Cholesterol (40-59) mg/dL - Imaging and cardiology Chest x-ray: report reviewed CT Scan - head: report reviewed MRI - head: report reviewed
[2019-03-15] MEDS ORDERED: LANTUS SUB-Q SCH (22:00)
--- NOTE | 2019-03-15 23:23 | Consultation ---
HISTORY OF PRESENT ILLNESS: This is a 63-year-old male who presents with a history of prostate cancer. EMS was called to see the patient because he had a seizure while [employer]. On arrival, the patient was confused. He has started radiation therapy for his prostate cancer. Recently, his blood sugar was over 600 and he was also noted to be hypotensive. He had no prior history of seizures in the past. His blood pressure on admission to the Emergency Room was 97/59, his pulse rate was 62, his respirations 18, his temperature was 98 degrees. He was initially assessed and thought not to have a TPA candidate. He was thought to be admitted for seizure, CVA. He was nonverbal and he is unable to move his upper extremities and lower extremities. The patient was initially assessed and thought and CT scan of the head was reviewed. I have checked over the CT scan personally and there is a normal oneal and white matter appearance with interesting large sulcal pattern in the posterior occipital lobe on the left side, which is seen on the more dorsal cuts, hard to assess whether this is simply developmental but I am commenting on it is a potential area, which may be a seizure focus. Oneal-white matter is otherwise unremarkable. I do not see any on review of his skull series and no other abnormalities present and made some careful reviews of the craniocervical junction, odontoid process is normal, C1 has normal appearance, the axis and dens are normal. The mastoid air cells were unremarkable. I do not see any lesions in the skull suggestive of prostate cancer. I have as well reviewed the report of his chest x-ray and looking for evidence of potential vertebral body metastatic process, I see none there. IMPRESSION: Generalized seizure occurring in a patient just starting radiation therapy. I do not see any lesions from prostate cancer in the brain. I would recommend getting an MRI just the same. Blood sugar of over 600 may be the actual cause of this problem and I would further assess this. JOB# [id number] JHON/TAVO
[2019-03-16 07:31] LABS: BUN/Creatinine Ratio 23; Blood Urea Nitrogen 16 mg/dL (9-20); Hemolysis Index 23
[2019-03-16] MEDS ORDERED: NACL 0.9% 500 ML 500 ML ONE (08:04)
[2019-03-16] MEDS: HumaLOG SUB-Q SCH ×4 (08:11→21:34)
[2019-03-16] MEDS: GABAPENTIN PO SCH ×3 (08:13→21:26)
[2019-03-16] MEDS ORDERED: NACL 0.9% 500 ML 500 ML IV ONE (09:00)
[2019-03-16] MEDS: ASPIRIN PO SCH (09:18)
[2019-03-16] MEDS: ZESTRIL PO SCH (09:19)
[2019-03-16] MEDS: PEPCID IV SCH ×2 (09:19→21:27)
[2019-03-16] MEDS: SODIUM CHLORIDE FLUSH SYRINGE 10 ML IV SCH ×2 (09:19→21:27)
--- NOTE | 2019-03-16 09:47 | Progress Note ---
Subjective Date of service: 03/16/19 Interval history: WENT OVER ALL THE IMAGING STUDIES AND THE MRA AND MRI ARE NORMAL FOR AGE SUSPECT DIABETES CAUSE OF SEIZURE DID NOTSEE ANY LESIONS FROM PROSTATE CANCER Objective - Vital Sign Vital Signs - 12hr 03/15/19 03/15/19 03/16/19 22:30 23:20 03:49 Temperature 98.0 F 98.0 F Pulse Rate 65 54 L Pulse Rate [ 60 Apical] Pulse Rate [ 60 From Monitor] Respiratory 18 18 18 Rate Blood Pressure 105/67 94/51 O2 Sat by Pulse 97 93 98 Oximetry 03/16/19 03/16/19 07:21 09:19 Temperature 97.7 F Pulse Rate 64 64 Pulse Rate [ Apical] Pulse Rate [ From Monitor] Respiratory 18 Rate Blood Pressure 130/75 130/75 O2 Sat by Pulse 97 Oximetry - Laboratory Findings CBC and BMP: 03/15/19 04:43 03/16/19 06:52 Abnormal Lab Findings: Abnormal Labs 03/14/19 03/14/19 03/14/19 15:28 15:28 15:28 MCHC Lymphocytes # (Manual) 1.1 L APTT 22.8 L Thrombin Time 20.3 H Sodium 133 L Chloride 96.2 L Carbon Dioxide 20 L Creatinine Glucose 480 H POC Glucose Hemoglobin A1c Triglycerides HDL Cholesterol 03/14/19 03/14/19 03/14/19 16:02 17:18 22:17 MCHC Lymphocytes # (Manual) APTT Thrombin Time Sodium Chloride Carbon Dioxide Creatinine Glucose POC Glucose 382 H 342 H 401 H Hemoglobin A1c Triglycerides HDL Cholesterol 03/15/19 03/15/19 03/15/19 04:43 04:43 04:43 MCHC 35 H Lymphocytes # (Manual) APTT Thrombin Time Sodium Chloride Carbon Dioxide Creatinine Glucose POC Glucose Hemoglobin A1c 12.9 H Triglycerides 236 H HDL Cholesterol 33 L 03/15/19 03/15/19 03/15/19 08:28 14:56 16:29 MCHC Lymphocytes # (Manual) APTT Thrombin Time Sodium Chloride Carbon Dioxide Creatinine Glucose POC Glucose 327 H 310 H 369 H Hemoglobin A1c Triglycerides HDL Cholesterol 03/15/19 03/16/19 03/16/19 21:20 00:02 02:05 MCHC Lymphocytes # (Manual) APTT Thrombin Time Sodium Chloride Carbon Dioxide Creatinine Glucose POC Glucose 363 H 382 H 458 H Hemoglobin A1c Triglycerides HDL Cholesterol 03/16/19 03/16/1903/16/19 05:30 06:52 07:32 MCHC Lymphocytes # (Manual) APTT Thrombin Time Sodium 132 L Chloride 96.9 L Carbon Dioxide 20 L Creatinine 0.7 L Glucose 550 H* POC Glucose 449 H 487 H Hemoglobin A1c Triglycerides HDL Cholesterol 03/16/19 09:36 MCHC Lymphocytes # (Manual) APTT Thrombin Time Sodium Chloride Carbon Dioxide Creatinine Glucose POC Glucose 412 H Hemoglobin A1c Triglycerides HDL Cholesterol
--- NOTE | 2019-03-16 12:04 | Progress Note ---
Assessment and Plan 1. Acute syncope due to hyperglycemia - acute CVA ruled out with negative workup 2. HONKA (blood glucose, New onset DM type 2) 3. Dehydration with hyperglycemia 4. Mild VEE (due to dehydration) 5. Prostate cancer (s/p chemo, radiation) 6. Hypotension due to Dehydration 7. H/o seizure disorder 8. H/o HTN 9. HDL (on statin) 10. Neuropathy Plan: Pt is admitted for TIA to r/o stroke - ruled out, symptoms likely from syncope with hyperglycemia negative CT head MRI brain, neuro following the pt cont IVF for hydration renal transfusion Glycemic management with insulin per sliding scale - cont to adjust long acting dose to prevent hypoglycemia/hyperglycemia and to better control BG, change to NPH 20 units BID Resumed home meds including high dose statin, ASA cont Supportive care, diet education DVT prophylaxis with SCD Disposition: when BG stabilizes Subjective Date of service: 03/16/19 Interval history: Patient seen and examined No acute event o/n BG at 550 today denies chest pain or SOB Objective - Exam Narrative Exam: General appearance: Present: no acute distress, well-nourished - EENT Eyes: PERRL, EOM intact ENT: hearing intact, clear oral mucosa Ears: bilateral: normal - Neck Neck: supple, normal ROM - Respiratory Respiratory effort: normal Respiratory: bilateral: CTA - Cardiovascular Rhythm: regular Heart Sounds: Present: S1 & S2. Absent: gallop, rub Extremities: pulses intact, No edema, normal color, Full ROM - Gastrointestinal General gastrointestinal: Present: soft, non-tender, non-distended, normal bowel sounds - Integumentary Integumentary: clear, warm, dry - Musculoskeletal Musculoskeletal: 1, strength equal bilaterally - Neurologic Neurologic: moves all extremities - Psychiatric Psychiatric: memory intact, appropriate mood/affect, intact judgment & insight - Constitutional Vitals: Vital Signs - 12hr 03/16/19 03/16/19 03/16/19 03:49 07:21 09:19 Temperature 98.0 F 97.7 F Pulse Rate 54 L 64 64 Respiratory 18 18 Rate Blood Pressure 94/51 130/75 130/75 O2 Sat by Pulse 98 97 Oximetry 03/16/19 10:00 Temperature Pulse Rate 61 Respiratory Rate Blood Pressure O2 Sat by Pulse Oximetry - Labs CBC & Chem 7: 03/15/19 04:43 03/16/19 06:52 Labs: Abnormal lab results 03/15/19 03/15/19 03/15/19 Range/Units 14:56 16:29 21:20 Sodium (137-145) mmol/L Chloride (98-107) mmol/L Carbon Dioxide (22-30) mmol/L Creatinine (0.8-1.5) mg/dL Glucose (75-100) mg/dL POC Glucose 310 H 369 H 363 H (70-105) 03/16/19 03/16/19 03/16/19 Range/Units 00:02 02:05 05:30 Sodium (137-145) mmol/L Chloride (98-107) mmol/L Carbon Dioxide (22-30) mmol/L Creatinine (0.8-1.5) mg/dL Glucose (75-100) mg/dL POC Glucose 382 H 458 H 449 H (70-105) 03/16/19 03/16/19 03/16/19 Range/Units 06:52 07:32 09:36 Sodium 132 L (137-145) mmol/L Chloride 96.9 L (98-107) mmol/L Carbon Dioxide 20 L (22-30) mmol/L Creatinine 0.7 L (0.8-1.5) mg/dL Glucose 550 H* (75-100) mg/dL POC Glucose 487 H 412 H (70-105) 03/16/19 Range/Units 11:45 Sodium (137-145) mmol/L Chloride (98-107) mmol/L Carbon Dioxide (22-30) mmol/L Creatinine (0.8-1.5) mg/dL Glucose (75-100) mg/dL POC Glucose 372 H (70-105)
[2019-03-16] MEDS ORDERED: NACL 0.9% 1000 ML 1,000 ML IV SCH (13:00)
[2019-03-16] MEDS: GLUCOPHAGE PO SCH (16:05)
[2019-03-17] MEDS: GLUCOPHAGE PO SCH (09:01)
[2019-03-17] MEDS: HumaLOG SUB-Q SCH (09:01)
[2019-03-17] MEDS: GABAPENTIN PO SCH (09:01)
[2019-03-17] MEDS ORDERED: PEPCID PO SCH (10:00)
--- NOTE | 2019-03-17 10:31 | Discharge Summary ---
Providers - Providers Date of Admission: 03/14/19 20:40 Date of discharge: 03/17/19 Attending physician: CORY SANTOS 03/14/19 20:41 Consult to Case Management [CONS] Routine Services Needed at Discharge: Occupational Therapy Notified:: case management Consult to Dietitian/Nutrition [CONS] Routine Physician Instructions: Reason For Exam: Reason for Consult: Nutrition Recommendations Reason for Consult: Diet education Occupational Therapy Evaluate and Treat [CONS] Routine Comment: Reason For Exam: Neuro deficits Physical Therapy Evaluation and Treat [CONS] Routine Comment: Reason For Exam: Neuro deficits 03/15/19 02:02 Consult to Physician [CONS] Routine Comment: Consulting Provider: CARLOS LE Physician Instructions: Reason For Exam: stroke/seizure 03/15/19 11:00 Consult to Physician [CONS] Routine Comment: Consulting Provider: COLTON ADNA Physician Instructions: Reason For Exam: stroke/seizure Primary care physician: OVERCOILER Hospitalization Condition: Stable Pertinent studies: head CT CXR head MRI/MRA 2d echo Hospital course: Discharge diagnosis: 1. Acute syncope due to hyperglycemia - acute CVA ruled out with negative workup 2. HONKA (blood glucose, New onset DM type 2) 3. Dehydration with hyperglycemia 4. Mild VEE (due to dehydration) 5. Prostate cancer (s/p chemo, radiation) 6. Hypotension due to Dehydration 7. H/o seizure disorder 8. H/o HTN 9. HDL (on statin) 10. Neuropathy Plan: Pt is admitted for TIA to r/o stroke - ruled out, symptoms likely from syncope with hyperglycemia negative CT head MRI brain, neuro following the pt cont IVF for hydration renal transfusion Glycemic management with insulin per sliding scale - cont to adjust long acting dose to prevent hypoglycemia/hyperglycemia and to better control BG, change to NPH 20 units BID Resumed home meds including high dose statin, ASA cont Supportive care, diet education DVT prophylaxis with SCD Disposition: when BG stabilizes Disposition: [id number] HOME [facility] Time spent for discharge: 34 minutes Core Measure Documentation - Palliative Care Palliative Care/ Comfort Measures: Not Applicable - Core Measures Any of the following diagnoses?: none Exam - Physical Exam Narrative exam: General appearance: Present: no acute distress, well-nourished - EENT Eyes: PERRL, EOM intact ENT: hearing intact, clear oral mucosa Ears: bilateral: normal - Neck Neck: supple, normal ROM - Respiratory Respiratory effort: normal Respiratory: bilateral: CTA - Cardiovascular Rhythm: regular Heart Sounds: Present: S1 & S2. Absent: gallop, rub Extremities: pulses intact, No edema, normal color, Full ROM - Gastrointestinal General gastrointestinal: Present: soft, non-tender, non-distended, normal bowel sounds - Integumentary Integumentary: clear, warm, dry - Musculoskeletal Musculoskeletal: 1, strength equal bilaterally - Neurologic Neurologic: moves all extremities - Psychiatric Psychiatric: memory intact, appropriate mood/affect, intact judgment & insight - Constitutional Vitals: Temp Pulse Resp BP Pulse Ox 102.3 F H 64 18 157/88 99 03/17/19 08:11 03/17/19 03:31 03/17/19 08:11 03/17/19 08:11 03/17/19 03:31 Plan Activity: advance as tolerated Weight Bearing Status: Weight Bear as Tolerated Diet: low fat, low salt, diabetic Special Instructions: record blood sugar diary Follow up with: PRIMARY CAREMD [Primary Care Provider] - 3-5 Days CARLOS ALBERTO ARANA MD [Staff Physician] - 7 Days Prescriptions: metFORMIN [Glucophage] 1,000 mg PO BIDDIAB #60 tablet Aspirin EC [Halfprin EC] 81 mg PO QDAY #30 tablet. Lispro Insulin [HumaLOG] 0 unit SUB-Q ACHS #10 ml Insulin NPH/Regular [NovoLIN 70/30] 25 unit SUB-Q BIDDIAB 30 Days #10 ml Other Discharge Orders: Glucometer (Amb) Location: None Selected Glucometer supplies[Amb] Location: None Selected
[2019-03-17 14:45] VITALS: BP 127/81
== END 2019-03-17 15:00 | disposition home or self-care (01) | DRG 638 ==
LOC: ED 14:41 → 4A 20:40
PROVIDERS: ADMIT Internal Medicine; ATTEND Internal Medicine
DX: E11.00 Type 2 diabetes mellitus with hyperosmolarity without nonketotic hyperglycemic-hyperosmolar coma (NKHHC) (principal); N17.9 Acute kidney failure, unspecified; G45.9 Transient cerebral ischemic attack, unspecified; E86.0 Dehydration; I95.9 Hypotension, unspecified; G40.909 Epilepsy, unspecified, not intractable, without status epilepticus; E78.5 Hyperlipidemia, unspecified; E11.40 Type 2 diabetes mellitus with diabetic neuropathy, unspecified; C61 Malignant neoplasm of prostate; I10 Essential (primary) hypertension; Z79.899 Other long term (current) drug therapy
CPT/HCPCS: 36415; 70450; 70544; 70551; 71045; 80048; 80053; 80061; 80320; 81001; 82550; 82553; 82962; 83036; 84484; 85007; 85025; 85610; 85670; 85730; 93005; 93010; 93306; 96361; 96374; G0378; A9270-GY; G0480; J1815; J2060; J7030; J7040

== ENCOUNTER 2019-04-03 10:01 | Inpatient (IN) | payer MEDICARE ==
--- NOTE | 2019-04-03 11:19 | Emergency Department Report ---
ED Syncope HPI - General Chief Complaint: Syncope Stated Complaint: SYNCOPAL EPISODE Time Seen by Provider: 04/03/19 10:40 - History of Present Illness Initial Comments: Patient is a 63-year-old male who presents emergency room after a syncopal episode that occurred just prior to arrival. Patient states that he was at his orthopedic office and will was sitting down filling out some paperwork when he began to feel dizzy and diaphoretic. He states it felt like the room was spinning. He states that then he had an episode of syncope. He states it only lasted for a couple of seconds and that the nurses were all around him and he did not fall to the ground or hit his head. He denies any chest pain, shortness of breath, abdominal pain, leg swelling, recent illness. He states that he is feeling somewhat better now just feels generalized fatigue and generalized weakness. He states that this morning he took his blood sugar and that his blood sugar was 97 and he ate one banana and that is all he had for breakfast. He states that he still took his insulin 70/30 and took 25 units this morning. the patient states he had a similar syncopal episode approximately three weeks ago while he was sitting in the [facility] chair. he states he has a past medical history of diabetes, prostate cancer, hypertension, hyperlipidemia, "mild [place] but no stents or angioplasty." He states that he last had radiation therapy for his prostate cancer on March 21 and he last had chemotherapy 6 days ago. - Related Data Allergies/Adverse Reactions: Allergies No Known Allergies Allergy (Verified 04/03/19 10:18) Home Medications: Ambulatory Orders Gabapentin [Neurontin] 800 mg PO TID 03/14/19 Lisinopril [Zestril TAB] 20 mg PO QDAY 03/14/19 Rosuvastatin Calcium 40 mg PO BID 03/14/19 Aspirin EC [Halfprin EC] 81 mg PO QDAY #30 tablet. 03/17/19 Insulin NPH/Regular [NovoLIN 70/30] 25 unit SUB-Q BIDDIAB 30 Days #10 ml 03/17/19 Lispro Insulin [HumaLOG] 0 unit SUB-Q ACHS #10 ml 03/17/19 metFORMIN [Glucophage] 1,000 mg PO BIDDIAB #60 tablet 03/17/19 ED Review of Systems ROS: Stated complaint: SYNCOPAL EPISODE Other details as noted in HPI Comment: All other systems reviewed and negative ED Past Medical Hx - Past Medical History Hx Hypertension: Yes Hx Diabetes: Yes Additional medical history: Prostate CA/ low b/p lately - Surgical History Past Surgical History?: No - Social History Smoking Status: Never Smoker Substance Use Type: Alcohol - Medications Home Medications: Home Medications Medication Instructions Recorded Confirmed Last Taken Type Gabapentin [Neurontin] 800 mg PO TID 03/14/19 03/14/19 Unknown History Lisinopril [Zestril TAB] 20 mg PO QDAY 03/14/19 03/14/19 Unknown History Rosuvastatin Calcium 40 mg PO BID 03/14/19 03/14/19 Unknown History Aspirin EC [Halfprin EC] 81 mg PO QDAY #30 tablet. 03/17/19 Unknown Rx Insulin NPH/Regular [NovoLIN 70/30] 25 unit SUB-Q BIDDIAB 30 Days #10 03/17/19 Unknown Rx ml Lispro Insulin [HumaLOG] 0 unit SUB-Q ACHS #10 ml 03/17/19 Unknown Rx metFORMIN [Glucophage] 1,000 mg PO BIDDIAB #60 tablet 03/17/19 Unknown Rx ED Physical Exam - General Limitations: No Limitations General appearance: alert, in no apparent distress - Head Head exam: Present: atraumatic, normocephalic - Eye Eye exam: Present: normal appearance, PERRL, EOMI - ENT ENT exam: Present: mucous membranes moist - Respiratory Respiratory exam: Present: normal lung sounds bilaterally. Absent: respiratory distress, wheezes, rales, rhonchi, stridor, chest wall tenderness, accessory muscle use, decreased breath sounds, prolonged expiratory - Cardiovascular Cardiovascular Exam: Present: regular rate, normal rhythm, normal heart sounds. Absent: systolic murmur, diastolic murmur, rubs, gallop - GI/Abdominal GI/Abdominal exam: Present: soft, normal bowel sounds. Absent: distended, tenderness, guarding, rebound, rigid - Neurological Exam Neurological exam: Present: alert, oriented X3, CN II-XII intact, other (normal finger to nose, normal heel to olve, 5/5 strength in the BUE/BLE, sensation in tact throughout, no focal neuro deficit). Absent: motor sensory deficit - Psychiatric Psychiatric exam: Present: normal affect, normal mood - Skin Skin exam: Present: warm, dry, intact ED Course Vital Signs 04/03/19 04/03/19 04/03/19 10:05 11:31 12:58 Temperature 97.8 F Pulse Rate 75 75 74 Respiratory 18 16 12 Rate Blood Pressure 101/55 Blood Pressure 102/60 101/60 [Right] O2 Sat by Pulse 100 100 100 Oximetry 04/03/19 04/03/19 15:08 16:57 Temperature Pulse Rate 77 89 Respiratory 14 14 Rate Blood Pressure Blood Pressure 109/66 114/74 [Right] O2 Sat by Pulse 100 100 Oximetry - Consultations Consultation #1: 04/03/19 16:[address] Mendoza, hospitalist who will accept and resume care of patient, will admit to the hospital asked to write bridge orders to telemetry ED Medical Decision Making - Lab Data Result diagrams: 04/03/19 11:09 04/03/19 11:09 Lab Results 04/03/19 04/03/19 04/03/19 Range/Units 11:09 11:09 11:43 WBC 10.2 (4.5-11.0) K/mm3 RBC 3.14 L (3.65-5.03) M/mm3 Hgb 9.4 L (11.8-15.2) gm/dl Hct 28.3 L (35.5-45.6) % MCV 90 (84-94) fl MCH 30 (28-32) pg MCHC 33 (32-34) % RDW 15.7 H (13.2-15.2) % Plt Count 355 (140-440) K/mm3 Lymph % (Auto) [employer] [place] % (Auto) [employer] Eos % (Auto) [employer] Baso % (Auto) [employer] Lymph # [employer] [place] # [employer] Eos # [employer] Baso # [employer] Add Manual Diff Complete Total Counted 100 Seg Neutrophils % [employer] Seg Neuts % (Manual) 68.0 (40.0-70.0) % Band Neutrophils % 5.0 % Lymphocytes % (Manual) 8.0 L (13.4-35.0) % Reactive Lymphs % (Man) 0 % Monocytes % (Manual) 17.0 H (0.0-7.3) % Eosinophils % (Manual) 0 (0.0-4.3) % Basophils % (Manual) 0 (0.0-1.8) % Metamyelocytes % 2.0 % Myelocytes % 0 % Promyelocytes % 0 % Blast Cells % 0 % Nucleated RBC % Not Reportable Seg Neutrophils # [employer] Seg Neutrophils # Man 6.9 (1.8-7.7) K/mm3 Band Neutrophils # 0.5 K/mm3 Lymphocytes # (Manual) 0.8 L (1.2-5.4) K/mm3 Abs React Lymphs (Man) 0.0 K/mm3 Monocytes # (Manual) 1.7 H (0.0-0.8) K/mm3 Eosinophils # (Manual) 0.0 (0.0-0.4) K/mm3 Basophils # (Manual) 0.0 (0.0-0.1) K/mm3 Metamyelocytes # 0.2 K/mm3 Myelocytes # 0.0 K/mm3 Promyelocytes # 0.0 K/mm3 Blast Cells # 0.0 K/mm3 WBC Morphology Not Reportable Hypersegmented Neuts Not Reportable Hyposegmented Neuts Not Reportable Hypogranular Neuts Not Reportable Smudge Cells Not Reportable Toxic Granulation Not Reportable Toxic Vacuolation Not Reportable Dohle Bodies Not Reportable Pelger-Huet Anomaly Not Reportable Jhonny Rods Not Reportable Platelet Estimate Consistent w auto Clumped Platelets Few Plt Clumps, EDTA Not Reportable Large Platelets Not Reportable Giant Platelets Not Reportable Platelet Satelliting Not Reportable Plt Morphology Comment Not Reportable RBC Morphology Not Reportable Dimorphic RBCs Not Reportable Polychromasia Not Reportable Hypochromasia Not Reportable Poikilocytosis Not Reportable Anisocytosis 1+ Microcytosis Not Reportable Macrocytosis Not Reportable Spherocytes Not Reportable Pappenheimer Bodies Not Reportable Sickle Cells Not Reportable Target Cells Not Reportable Tear Drop Cells Not Reportable Ovalocytes Not Reportable Helmet Cells Not Reportable [place] Bodies Not Reportable [place] Rings Not Reportable Mallory Cells Not Reportable Bite Cells Not Reportable Crenated Cell Not Reportable Elliptocytes Not Reportable Acanthocytes (Spur) Not Reportable Rouleaux Not Reportable Hemoglobin C Crystals Not Reportable Schistocytes Not Reportable Malaria parasites Not Reportable Jaleel Bodies Not Reportable Hem Pathologist Commnt No D-Dimer (0-234) ng/mlDDU Sodium 135 L (137-145) mmol/L Potassium 4.0 (3.6-5.0) mmol/L Chloride 103.5 (98-107) mmol/L Carbon Dioxide 20 L (22-30) mmol/L Anion Gap 16 mmol/L BUN 20 (9-20) mg/dL Creatinine 0.9 (0.8-1.5) mg/dL Estimated GFR > 60 ml/min BUN/Creatinine Ratio 22 % Glucose 78 (75-100) mg/dL POC Glucose 72 (70-105) Calcium 8.9 (8.4-10.2) mg/dL Phosphorus 3.20 (2.5-4.5) mg/dL Magnesium 2.00 (1.7-2.3) mg/dL Total Bilirubin 0.40 (0.1-1.2) mg/dL AST 40 (5-40) units/L ALT 53 (7-56) units/L Alkaline Phosphatase 74 (35-129) units/L Troponin T < 0.010 (0.00-0.029) ng/mL Total Protein 6.9 (6.3-8.2) g/dL Albumin 2.3 L (3.9-5) g/dL Albumin/Globulin Ratio 0.5 % 04/03/19 Range/Units 12:20 WBC (4.5-11.0) K/mm3 RBC (3.65-5.03) M/mm3 Hgb (11.8-15.2) gm/dl Hct (35.5-45.6) % MCV (84-94) fl MCH (28-32) pg MCHC (32-34) % RDW (13.2-15.2) % Plt Count (140-440) K/mm3 Lymph % (Auto) [place] % (Auto) Eos % (Auto) Baso % (Auto) Lymph # [place] # Eos # Baso # Add Manual Diff Total Counted Seg Neutrophils % Seg Neuts % (Manual) (40.0-70.0) % Band Neutrophils % % Lymphocytes % (Manual) (13.4-35.0) % Reactive Lymphs % (Man) % Monocytes % (Manual) (0.0-7.3) % Eosinophils % (Manual) (0.0-4.3) % Basophils % (Manual) (0.0-1.8) % Metamyelocytes % % Myelocytes % % Promyelocytes % % Blast Cells % % Nucleated RBC % Seg Neutrophils # Seg Neutrophils # Man (1.8-7.7) K/mm3 Band Neutrophils # K/mm3 Lymphocytes # (Manual) (1.2-5.4) K/mm3 Abs React Lymphs (Man) K/mm3 Monocytes # (Manual) (0.0-0.8) K/mm3 Eosinophils # (Manual) (0.0-0.4) K/mm3 Basophils # (Manual) (0.0-0.1) K/mm3 Metamyelocytes # K/mm3 Myelocytes # K/mm3 Promyelocytes # K/mm3 Blast Cells # K/mm3 WBC Morphology Hypersegmented Neuts Hyposegmented Neuts Hypogranular Neuts Smudge Cells Toxic Granulation Toxic Vacuolation Dohle Bodies Pelger-Huet Anomaly Jhonny Rods Platelet Estimate Clumped Platelets Plt Clumps, EDTA Large Platelets Giant Platelets Platelet Satelliting Plt Morphology Comment RBC Morphology Dimorphic RBCs Polychromasia Hypochromasia Poikilocytosis Anisocytosis Microcytosis Macrocytosis Spherocytes Pappenheimer Bodies Sickle Cells Target Cells Tear Drop Cells Ovalocytes Helmet Cells [place] Bodies [place]af[place] Rings [place] Cells Bite Cells Crenated Cell Elliptocytes Acanthocytes (Spur) Rouleaux Hemoglobin C Crystals Schistocytes Malaria parasites Jaleel Bodies Hem Pathologist Commnt D-Dimer 1568.02 H (0-234) ng/mlDDU Sodium (137-145) mmol/L Potassium (3.6-5.0) mmol/L Chloride (98-107) mmol/L Carbon Dioxide (22-30) mmol/L Anion Gap mmol/L BUN (9-20) mg/dL Creatinine (0.8-1.5) mg/dL Estimated GFR ml/min BUN/Creatinine Ratio % Glucose (75-100) mg/dL POC Glucose (70-105) Calcium (8.4-10.2) mg/dL Phosphorus (2.5-4.5) mg/dL Magnesium (1.7-2.3) mg/dL Total Bilirubin (0.1-1.2) mg/dL AST (5-40) units/L ALT (7-56) units/L Alkaline Phosphatase (35-129) units/L Troponin T (0.00-0.029) ng/mL Total Protein (6.3-8.2) g/dL Albumin (3.9-5) g/dL Albumin/Globulin Ratio % - Radiology Data Radiology results: report reviewed CT HEAD WITHOUT CONTRAST INDICATION / CLINICAL INFORMATION: syncope. TECHNIQUE: Axial imaging performed from the skull apex through the skull base without the use of contrast. Sagittal and coronal reformatted images. All CT scans at this location are performed using CT dose reduction for ALARA by means of automated exposure control. COMPARISON: 03/14/2019 FINDINGS: CEREBRAL PARENCHYMA: No significant abnormality. No acute territorial infarct. HEMORRHAGE: None. EXTRA-AXIAL SPACES: Normal in size and morphology for the patient's age. VENTRICULAR SYSTEM: Normal in size and morphology for the patient's age. MIDLINE SHIFT OR HERNIATION: None. CEREBELLUM / BRAINSTEM: No significant abnormality. CALVARIUM: No significant abnormality. ORBITS: Normal as visualized. PARANASAL SINUSES / MASTOID AIR CELLS: Normal as visualized. SOFT TISSUES of HEAD: No significant abnormality. ADDITIONAL FINDINGS: None. IMPRESSION: No acute intracranial abnormality. Signer Name: Daniel Cates Jr, MD Signed: 04/03/2019 1:43 PM Workstation Name: [id number] Transcribed By: TTR Dictated By: DANIEL CATES JR, MD Electronically Authenticated By: DANIEL CATES JR, MD Signed Date/Time: 04/03/19 1343 DD/ 1342 TD/TT: CTA CHEST WITH CONTRAST INDICATION : elevated d-dimer, syncope. TECHNIQUE: Axial imaging performed through the chest, with contrast bolus timing set to maximize opacification of the pulmonary arteries. Sagittal and coronal reformatted images. 3-plane MIP reformatted images were obtained. All CT scans at this location are performed using CT dose reduction for ALARA by means of automated exposure control. 100 mL of intravenous contrast administered. COMPARISON: None FINDINGS: Bolus: Contrast bolus timing is adequate. PTE: No filling defect is present to suggest PTE. Mediastinum: Heart and great vessels appear normal. No pathologic mediastinal adenopathy. Lungs: Trace bilateral layering pleural effusions are identified. Minor bibasilar atelectatic changes. No infiltrate, mass or pneumothorax. Bones: Degenerative changes in the spine with nothing acute. Additional findings: There is a large ill-defined fluid collection along the curvature of the left lateral thoracic cage soft tissues. This collection spans from the level of the second rib to the 10th rib. Trace internal gas is identified superiorly. The etiology of this is unclear. This may represent a large abscess or hematoma. Please correlate with the patient's clinical presentation. IMPRESSION: No evidence for pulmonary embolus. Trace bilateral pleural effusions. Large soft tissue fluid collection along the left lateral thoracic wall as described above. Signer Name: Daniel Cates Jr, MD Signed: 04/03/2019 4:06 PM Workstation Name: [id number] Transcribed By: TTR Dictated By: DANIEL CATES JR, MD Electronically Authenticated By: DANIEL CATES JR, MD Signed Date/Time: 04/03/191605 DD/ 02 TD/TT: - Medical Decision Making Patient is a 63-year-old male who presents emergency room after a syncopal episode that occurred just prior to arrival. Patient states that he was at his orthopedic office and will was sitting down filling out some paperwork when he began to feel dizzy and diaphoretic. He states it felt like the room was spinning. He states that then he had an episode of syncope. He states it only lasted for a couple of seconds and that the nurses were all around him and he did not fall to the ground or hit his head. He denies any chest pain, shortness of breath, abdominal pain, leg swelling, recent illness. He states that he is feeling somewhat better now just feels generalized fatigue and generalized weakness. He states that this morning he took his blood sugar and that his blood sugar was 97 and he ate one banana and that is all he had for breakfast. He states that he still took his insulin 70/30 and took 25 units this morning. the patient states he had a similar syncopal episode approximately three weeks ago while he was sitting in the [facility] chair. he states he has a past medical history of diabetes, prostate cancer, hypertension, hyperlipidemia, "mild [place] but no stents or angioplasty." He states that he last had radiation therapy for his prostate cancer on March 21 and he last had chemotherapy 6 days ago. VSS. CBC shows stable anemia. CMP is stable. d-dimer is elevated. trop is negative. EKG without signs of STEMI or arrhythmia. CT head: No acute intracranial abnormality. CTA chest: No evidence for pulmonary embolus. Trace bilateral pleural effusions. Large soft tissue fluid collection along the left lateral thoracic wall as described above. 10 cm by 8 cm loculated of fluid present to the left posterior rib cage, Dr. Aguirre evaluated and believes could be hematoma. pt states that after he got out of the hospital he reached up to get in the car and felt a pulling sensation. due to the fact this is patients second syncope episode and does not appear to be related to hypoglycemia, will admit pt for cardiac workup. discussed case with Dr. Mendoza, regarding patients results and discussed CT findings in case pt needs possible surgical evaluation while admitted in the hospital due to soft tissue fluid collection. pt admitted to Dr. Mendoza. - Differential Diagnosis ACS, arrhythmia, PE, valve dysfunction, hypoglycemia, intracranial process Critical care attestation.: If time is entered above; I have spent that time in minutes in the direct care of this critically ill patient, excluding procedure time. ED Disposition Clinical Impression: Syncope Qualifiers: Syncope type: unspecified Qualified Code(s): R55 - Syncope and collapse Prostatitis Qualifiers: Prostatitis type: unspecified Qualified Code(s): N41.9 - Inflammatory disease of prostate, unspecified Disposition: DC-09 OP ADMIT IP TO THIS HOSP Is pt being admited?: Yes Does the pt Need Aspirin: No Condition: Fair
[2019-04-03 11:51] LABS: Hematocrit 28.3 % (35.5-45.6); Hemoglobin 9.4 gm/dl (11.8-15.2); Mean Corpuscular HGB Conc 33 % (32-34); Mean Corpuscular Volume 90 fl (84-94); Platelet Count 355 K/mm3 (140-440); Red Blood Count 3.14 M/mm3 (3.65-5.03); Red Cell Distribution Width 15.7 % (13.2-15.2)
[2019-04-03 12:06] LABS: Alanine Aminotransferase 53 units/L (7-56); Albumin 2.3 g/dL (3.9-5); BUN/Creatinine Ratio 22; Blood Urea Nitrogen 20 mg/dL (9-20); Calcium 8.9 mg/dL (8.4-10.2); Hemolysis Index 2
[2019-04-03 12:38] LABS: Band Neutrophils # (Manual) 0.5 K/mm3; Basophils % (Manual) 0 % (0.0-1.8); Eosinophils % (Manual) 0 % (0.0-4.3); Total Cells Counted 100
[2019-04-03 12:39] LABS: Anisocytosis 1+; Platelet Clumps Few; Platelet Estimate Consistent w Auto
--- NOTE | 2019-04-03 13:47 | Cat Scan Report ---
CT HEAD WITHOUT CONTRAST INDICATION / CLINICAL INFORMATION: syncope. TECHNIQUE: Axial imaging performed from the skull apex through the skull base without the use of cont rast. Sagittal and coronal reformatted images. All CT scans at this location are performed using CT dose reduction for ALARA by means of automated exposure control. COMPARISON: 03/14/2019 FINDINGS: CEREBRAL PARENCHYMA: No significant abnormality. No acute territorial infarct. HEMORRHAGE: None. EXTRA-AXIAL SPACES: Normal in size and morphology for the patient's age. VENTRICULAR SYSTEM: Normal in size and morphology for the patient's age. MIDLINE SHIFT OR HERNIATION: None. CEREBELLUM / BRAINSTEM: No significant abnormality. CALVARIUM: No significant abnormality. ORBITS: Normal as visualized. PARANASAL SINUSES / MASTOID AIR CELLS: Normal as visualized. SOFT TISSUES of HEAD: No significant abnormality. ADDITIONAL FINDINGS: None. IMPRESSION: No acute intracranial abnormality. Signer Name: Daniel Cates Jr, MD Signed: 04/03/2019 1:43 PM Workstation Name: [id number]
[2019-04-03 15:28] LABS: Bilirubin,Urine NEG (Negative); Blood,Urine SM (Negative); Color,Urine Yellow (Yellow); Mucus,Urine FEW /HPF
--- NOTE | 2019-04-03 16:10 | Cat Scan Report ---
CTA CHEST WITH CONTRAST INDICATION : elevated d-dimer, syncope. TECHNIQUE: Axial imaging performed through the chest, with contrast bolus timing set to maximize opa cification of the pulmonary arteries. Sagittal and coronal reformatted images. 3-plane MIP reformatte d images were obtained. All CT scans at this location are performed using CT dose reduction for ALAR A by means of automated exposure control. 100 mL of intravenous contrast administered. COMPARISON: None FINDINGS: Bolus: Contrast bolus timing is adequate. PTE: No filling defect is present to suggest PTE. Mediastinum: Heart and great vessels appear normal. No pathologic mediastinal adenopathy. Lungs: Trace bilateral layering pleural effusions are identified. Minor bibasilar atelectatic change s. No infiltrate, mass or pneumothorax. Bones: Degenerative changes in the spine with nothing acute. Additional findings: There is a large ill-defined fluid collection along the curvature of the left la teral thoracic cage soft tissues. This collection spans from the level of the second rib to the 10th rib. Trace internal gas is identified superiorly. The etiology of this is unclear. This may represent a large abscess or hematoma. Please correlate with the patient's clinical presentation. IMPRESSION: No evidence for pulmonary embolus. Trace bilateral pleural effusions. Large soft tissue fluid collection along the left lateral thoracic wall as described above. Signer Name: Daniel Cates Jr, MD Signed: 04/03/2019 4:06 PM Workstation Name: [id number]
[2019-04-03] MEDS ORDERED: cefTRIAXone/NS 1 GM/50 ML 1 GM/50 ML BAG IV ONE (16:37)
[2019-04-03] MEDS ORDERED: ONDANSETRON 4 MG/2 ML INJ IV PRN (22:05)
[2019-04-03] MEDS ORDERED: HYDROmorphone 1 MG/1 ML INJ IV PRN (22:05)
[2019-04-03] MEDS ORDERED: NON-FORMULARY EACH (Rosuvastatin Calcium [Rosuvastatin Calcium] 40 MG) PO SCH (22:15)
[2019-04-03] MEDS: oxyCODONE /ACETAMINOPHEN 5-325MG TAB PO PRN (22:58)
[2019-04-03] MEDS: FAMOTIDINE 20 MG TAB PO SCH (22:58)
[2019-04-04 05:58] LABS: Alanine Aminotransferase 44 units/L (7-56); Albumin 2.3 g/dL (3.9-5); BUN/Creatinine Ratio 19; Blood Urea Nitrogen 15 mg/dL (9-20); Calcium 8.9 mg/dL (8.4-10.2); Hemolysis Index 14
[2019-04-04] MEDS: SODIUM CHLORIDE 0.9% 1000 ML 1,000 ML IV SCH (06:26)
--- NOTE | 2019-04-04 06:56 | Event Note ---
Date: 04/03/19 See H/p in reports Syncope w/u Echo/CDS
[2019-04-04] MEDS ORDERED: NON-FORMULARY EACH (Gabapentin [Neurontin] 800 MG) PO SCH (08:00)
--- NOTE | 2019-04-04 08:31 | History and Physical Report ---
CHIEF COMPLAINT: Nearly passed out at doctor's office. HISTORY OF PRESENT ILLNESS: A 63-year-old with history of hypertension, insulin-dependent diabetes and hyperlipidemia, was sitting in his orthopedic office and was filling out paperwork. He felt dizzy and lightheaded and was about to pass out, but did not pass out. He feels better and has generalized fatigue and generalized weakness. The patient takes insulin. The patient had a similar episode 3 weeks ago. The patient is not clear whether it can be secondary to low blood glucose levels. PAST MEDICAL HISTORY: Insulin-dependent diabetes, hypertension, peripheral neuropathy and hyperlipidemia. PAST SURGICAL HISTORY: None. SOCIAL HISTORY: Does not smoke. Alcohol occasionally. FAMILY HISTORY: Hypertension. REVIEW OF SYSTEMS: Significant for feeling of near syncopal episode x 2 in the last 3 weeks; one 3 weeks ago and one today. Otherwise, review of systems negative. PHYSICAL EXAMINATION: GENERAL: Young elderly male, cooperative during examination. VITAL SIGNS: Blood pressure is 102/63, temperature 99.2, pulse is 96, respiratory rate is 16, blood pressure lying down is 98/61 with a heart rate of 89, sitting is 93/62 with a heart rate of 99 and standing blood pressure is 95/50 with heart rate of 108. Some amount of orthostasis present. HEENT: Unremarkable. NECK: Supple. No lymphadenopathy, no thyromegaly. LUNGS: Clear to auscultation and percussion. Good air entry. CARDIOVASCULAR: S1, S2 heard. No gallop, no murmur, no rub. Apical impulse in left fifth intercostal space and midclavicular line. ABDOMEN: Soft and benign. No hepatosplenomegaly. No guarding, no rigidity. Hernial orifices are normal. EXTREMITIES: Good pedal pulses. No pedal edema. CENTRAL NERVOUS SYSTEM: Alert and oriented x 4, nonfocal exam. SKIN: Normal. LABORATORY DATA: White count is 10,200, H and H is 9.4 and 28.3, platelet count is 355,000. Electrolytes are near normal. Sodium is 135. LFTs are normal. Urine shows white blood cells of 17. ASSESSMENT AND PLAN: 1. Near syncope. Syncope workup. Possible rule out orthostatic hypotension and possible hypoglycemia in the differential diagnosis. Echocardiogram ordered to rule out aortic stenosis and hypertrophic cardiomyopathy and mitral stenosis. Carotid duplex scan ordered. Lexiscan was not ordered. 2. Urinary tract infection. Rocephin 1 gram intravenous initiated. 3. Insulin-dependent diabetes, uncontrolled. Continue home insulin and coverage. The patient counseled to follow up with his primary care and insulin to be adjusted here by the primary team. 4. Hypertension. Continue antihypertensives. 5. Hyperlipidemia. Continue statins. 6. Deep venous thrombosis prophylaxis, Lovenox 40 mg subcutaneous daily. In summary, near syncope workup, hypertension, insulin-dependent diabetes, hyperlipidemia. JOB# [id number] [facility]/TAVO MCCOY
--- NOTE | 2019-04-04 14:16 | Vascular Lab Report ---
"DUPLEX DOPPLER ULTRASOUND CAROTID, BILATERAL INDICATION: syncope. FINDINGS: RIGHT CAROTID: Small amount of atherosclerotic plaque. Right ICA peak systolic velocity: 102 cm/sec. Right Vertebral Artery: Antegrade flow. LEFT CAROTID: Small amount of atherosclerotic plaque. Left ICA peak systolic velocity: 97 cm/sec. Left Vertebral Artery: Antegrade flow. IMPRESSION: 1. Right Internal Carotid Artery: Less than 50% diameter stenosis. 2. Left Internal Carotid Artery: Less than 50% diameter stenosis. Velocity criteria are extrapolated from diameter data as defined by the Society of Radiologists in Ul trasound Consensus Conference, Radiology 2003; 229;340-346. Degree of Stenosis (%) || ICA PSV (cm/sec) || Plaque estimate (%) || ICA/CCA PSV Ratio Normal <125 None <2.0 <50 <125 <50 <2.0 50-69 125-230 50 2.0-4.0 70 but less than 100 >230 50 >4.0 Near occlusion High, low, or none visible variable Total occlusion None visible; no lumen N/A Signer Name: New Lemon MD Signed: 04/04/2019 2:11 PM Workstation Name: [id number]
[2019-04-04] MEDS: LISINOPRIL 20 MG TAB PO SCH (14:19)
[2019-04-04] MEDS: ASPIRIN EC 81 MG TAB PO SCH (14:19)
[2019-04-04] MEDS: GABAPENTIN 400 MG CAP PO SCH ×3 (14:19→21:51)
[2019-04-04] MEDS: oxyCODONE /ACETAMINOPHEN 5-325MG TAB PO PRN (14:19)
[2019-04-04] MEDS: FAMOTIDINE 20 MG TAB PO SCH ×2 (14:19→21:51)
[2019-04-04] MEDS: metFORMIN 500 MG TAB PO SCH ×2 (14:20→17:58)
[2019-04-04] MEDS: cefTRIAXone/NS 1 GM/50 ML 1 GM/50 ML BAG IV SCH (14:21)
[2019-04-04] MEDS: INSULIN NPH/REGULAR 70/30 INJ SUB-Q SCH ×2 (14:21→17:58)
--- NOTE | 2019-04-04 17:16 | Progress Note ---
Assessment and Plan Assessment and plan: Patient is a 63 yo man with a history of IDDM, hypertension, DM neuropathy, dyslipidemia, prostate cancer undergoing XRT and hormonal therapy who presents with syncopal episode. * CT head without contrast IMPRESSION: No evidence for pulmonary embolus. Trace bilateral pleural effusions. Large soft tissue fluid collection along the left lateral thoracic wall as described above. * CTA chest IMPRESSION: No evidence for pulmonary embolus. Trace bilateral pleural effusions. Large soft tissue fluid collection along the left lateral thoracic wall as described above. Syncope appears vasovagal: treat symptomatically Large Left chest/back soft tissue swelling: consulted IR Prostate Cancer: follow up with Oncologist UTI/prostatitis: treat with iv rocephin, follow urine culture Hypertension: low salt diet History Interval history: Patient was seen and examined. Follow-up on current diagnosis of syncope. No overnight events reported to me. Patient denies any chest pain, shortness breath, nausea/vomiting or severe headaches. Imaging, nursing note, chart, labs and old chart reviewed. Discussed with patient. Hospitalist Physical - Physical exam Narrative exam: Gen: WDWN, NAD, Awake, Alert, Orientated HEENT: NCAT, EOMI, PERRL, OP Clear Neck: supple, no adenopathy, no thyromegaly, no JVD CVS/Heart: RRR, normal S1S2, pulses present bilaterally Chest/Lungs: CTA B, Symmetrical chest expansion, good air entry bilaterally, left chest wall tenderness GI/Abdomen: soft, NTND, good bowel sounds, no guarding or rebound /Bladder: no suprapubic tenderness, no CVA or paraspinal tenderness Extermity/Skin: large tender moveable swelling left scapula area MSK: FROM x 4 Neuro: CN 2-12 grossly intact, no new focal deficits Psych: calm - Constitutional Vitals: Temp Pulse Resp BP Pulse Ox 99.5 F 63 18 107/61 98 04/04/19 15:57 04/04/19 16:19 04/04/19 15:57 04/04/19 15:57 04/04/19 15:57 Results - Labs CBC & Chem 7: 04/03/19 11:09 04/04/19 04:50 Labs: Laboratory Last Values WBC 10.2 K/mm3 (4.5-11.0) 04/03/19 11:09 RBC 3.14 M/mm3 (3.65-5.03) L 04/03/19 11:09 Hgb 9.4 gm/dl (11.8-15.2) L 04/03/19 11:09 Hct 28.3 % (35.5-45.6) L 04/03/19 11:09 MCV 90 fl (84-94) 04/03/19 11:09 MCH 30 pg (28-32) 04/03/19 11:09 MCHC 33 % (32-34) 04/03/19 11:09 RDW 15.7 % (13.2-15.2) H 04/03/19 11:09 Plt Count 355 K/mm3 (140-440) 04/03/19 11:09 Lymph % (Auto) Game Agent 04/03/19 11:09 [place] % (Auto) Game Agent 04/03/19 11:09 Eos % (Auto) Game Agent 04/03/19 11:09 Baso % (Auto) Game Agent 04/03/19 11:09 Lymph # Game Agent 04/03/19 11:09 [place] # Game Agent 04/03/19 11:09 Eos # Game Agent 04/03/19 11:09 Baso # Game Agent 04/03/19 11:09 Add Manual Diff Complete 04/03/19 11:09 Total Counted 100 04/03/19 11:09 Seg Neutrophils % Game Agent 04/03/19 11:09 Seg Neuts % (Manual) 68.0 % (40.0-70.0) 04/03/19 11:09 Band Neutrophils % 5.0 % 04/03/19 11:09 Lymphocytes % (Manual) 8.0 % (13.4-35.0) L 04/03/19 11:09 Reactive Lymphs % (Man) 0 % 04/03/19 11:09 Monocytes % (Manual) 17.0 % (0.0-7.3) H 04/03/19 11:09 Eosinophils % (Manual) 0 % (0.0-4.3) 04/03/19 11:09 Basophils % (Manual) 0 % (0.0-1.8) 04/03/19 11:09 Metamyelocytes % 2.0 % 04/03/19 11:09 Myelocytes % 0 % 04/03/19 11:09 Promyelocytes % 0 % 04/03/19 11:09 Blast Cells % 0 % 04/03/19 11:09 Nucleated RBC % Not Reportable 04/03/19 11:09 Seg Neutrophils # Game Agent 04/03/19 11:09 Seg Neutrophils # Man 6.9 K/mm3 (1.8-7.7) 04/03/19 11:09 Band Neutrophils # 0.5 K/mm3 04/03/19 11:09 Lymphocytes # (Manual) 0.8 K/mm3 (1.2-5.4) L 04/03/19 11:09 Abs React Lymphs (Man) 0.0 K/mm3 04/03/19 11:09 Monocytes # (Manual) 1.7 K/mm3 (0.0-0.8) H 04/03/19 11:09 Eosinophils # (Manual) 0.0 K/mm3 (0.0-0.4) 04/03/19 11:09 Basophils # (Manual) 0.0 K/mm3 (0.0-0.1) 04/03/19 11:09 Metamyelocytes # 0.2 K/mm3 04/03/19 11:09 Myelocytes # 0.0 K/mm3 04/03/19 11:09 Promyelocytes # 0.0 K/mm3 04/03/19 11:09 Blast Cells # 0.0 K/mm3 04/03/19 11:09 WBC Morphology Not Reportable 04/03/19 11:09 Hypersegmented Neuts Not Reportable 04/03/19 11:09 Hyposegmented Neuts Not Reportable 04/03/19 11:09 Hypogranular Neuts Not Reportable 04/03/19 11:09 Smudge Cells Not Reportable 04/03/19 11:09 Toxic Granulation Not Reportable 04/03/19 11:09 Toxic Vacuolation Not Reportable 04/03/19 11:09 Dohle Bodies Not Reportable 04/03/19 11:09 Pelger-Huet Anomaly Not Reportable 04/03/19 11:09 Jhonny Rods Not Reportable 04/03/19 11:09 Platelet Estimate Consistent w auto 04/03/19 11:09 Clumped Platelets Few 04/03/19 11:09 Plt Clumps, EDTA Not Reportable 04/03/19 11:09 Large Platelets Not Reportable 04/03/19 11:09 Giant Platelets Not Reportable 04/03/19 11:09 Platelet Satelliting Not Reportable 04/03/19 11:09 Plt Morphology Comment Not Reportable 04/03/19 11:09 RBC Morphology Not Reportable 04/03/19 11:09 Dimorphic RBCs Not Reportable 04/03/19 11:09 Polychromasia Not Reportable 04/03/19 11:09 Hypochromasia Not Reportable 04/03/19 11:09 Poikilocytosis Not Reportable 04/03/19 11:09 Anisocytosis 1+ 04/03/19 11:09 Microcytosis Not Reportable 04/03/19 11:09 Macrocytosis Not Reportable 04/03/19 11:09 Spherocytes Not Reportable 04/03/19 11:09 Pappenheimer Bodies Not Reportable 04/03/19 11:09 Sickle Cells Not Reportable 04/03/19 11:09 Target Cells Not Reportable 04/03/19 11:09 Tear Drop Cells Not Reportable 04/03/19 11:09 Ovalocytes Not Reportable 04/03/19 11:09 Helmet Cells Not Reportable 04/03/19 11:09 [place] Bodies Not Reportable 04/03/19 11:09 [place] Rings Not Reportable 04/03/19 11:09 [place] Cells Not Reportable 04/03/19 11:09 Bite Cells Not Reportable 04/03/19 11:09 Crenated Cell Not Reportable 04/03/19 11:09 Elliptocytes Not Reportable 04/03/19 11:09 Acanthocytes (Spur) Not Reportable 04/03/19 11:09 Rouleaux Not Reportable 04/03/19 11:09 Hemoglobin C Crystals Not Reportable 04/03/19 11:09 Schistocytes Not Reportable 04/03/19 11:09 Malaria parasites Not Reportable 04/03/19 11:09 Jaleel Bodies Not Reportable 04/03/19 11:09 Hem Pathologist Commnt No 04/03/19 11:09 D-Dimer 1568.02 ng/mlDDU (0-234) H 04/03/19 12:20 Sodium 137 mmol/L (137-145) 04/04/19 04:50 Potassium 3.9 mmol/L (3.6-5.0) 04/04/19 04:50 Chloride 104.5 mmol/L (98-107) 04/04/19 04:50 Carbon Dioxide 20 mmol/L (22-30) L 04/04/19 04:50 Anion Gap 16 mmol/L 04/04/19 04:50 BUN 15 mg/dL (9-20) 04/04/19 04:50 Creatinine 0.8 mg/dL (0.8-1.5) 04/04/19 04:50 Estimated GFR > 60 ml/min 04/04/19 04:50 BUN/Creatinine Ratio 19 % 04/04/19 04:50 Glucose 100 mg/dL (75-100) 04/04/19 04:50 POC Glucose 194 (70-105) H 04/04/19 16:09 Hemoglobin A1c 11.7 % (4-6) H 04/03/19 22:47 Calcium 8.9 mg/dL (8.4-10.2) 04/04/19 04:50 Phosphorus 3.20 mg/dL (2.5-4.5) 04/03/19 11:09 Magnesium 2.00 mg/dL (1.7-2.3) 04/03/19 11:09 Total Bilirubin 0.30 mg/dL (0.1-1.2) 04/04/19 04:50 AST 37 units/L (5-40) 04/04/19 04:50 ALT 44 units/L (7-56) 04/04/19 04:50 Alkaline Phosphatase 78 units/L (35-129) 04/04/19 04:50 Troponin T < 0.010 ng/mL (0.00-0.029) 04/03/19 11:09 Total Protein 6.7 g/dL (6.3-8.2) 04/04/19 04:50 Albumin 2.3 g/dL (3.9-5) L 04/04/19 04:50 Albumin/Globulin Ratio 0.5 % 04/04/19 04:50 Urine Color Yellow (Yellow) 04/03/19 Unknown Urine Turbidity Slightly-cloudy (Clear) 04/03/19 Unknown Urine pH 5.0 (5.0-7.0) 04/03/19 Unknown Ur Specific [place] 1.015 (1.003-1.030) 04/03/19 Unknown Urine Protein 30 mg/dl mg/dL (Negative) 04/03/19 Unknown Urine Glucose (UA) Neg mg/dL (Negative) 04/03/19 Unknown Urine Ketones Neg mg/dL (Negative) 04/03/19 Unknown Urine Blood Sm (Negative) 04/03/19 Unknown Urine Nitrite Neg (Negative) 04/03/19 Unknown Urine Bilirubin Neg (Negative) 04/03/19 Unknown Urine Urobilinogen 4.0 mg/dL (<2.0) 04/03/19 Unknown Ur Leukocyte Esterase Tr (Negative) 04/03/19 Unknown Urine WBC (Auto) 17.0 /HPF (0.0-6.0) H 04/03/19 Unknown Urine RBC (Auto) 7.0 /HPF (0.0-6.0) 04/03/19 Unknown U Epithel Cells (Auto) < 1.0 /HPF (0-13.0) 04/03/19 Unknown Urine Mucus Few /HPF 04/03/19 Unknown Active Medications - Current Medications Current Medications: Generic Name Dose Route Start Last Admin Trade Name Freq PRN Reason Stop Dose Admin Acetaminophen 650 mg 04/03/19 22:05 Tylenol PO Q4H PRN Pain MILD(1-3)/Fever >100.5/SUAREZ Aspirin 81 mg 04/04/19 10:00 04/04/19 14:19 Halfprin Ec PO 81 mg QDAY LEANDRO Administration Atorvastatin Calcium 80 mg 04/03/19 23:00 04/03/19 22:58 Lipitor PO 80 mg QHS LEANDRO Administration Famotidine 20 mg 04/03/19 23:00 04/04/19 14:19 Pepcid PO 20 mg BID LEANDRO Administration Gabapentin 800 mg 04/04/19 08:00 04/04/19 14:20 Gabapentin PO Not Given TID LEANDRO Hydromorphone HCl 0.5 mg 04/03/19 22:05 Dilaudid IV Q3H PRN Pain , Severe (7-10) Sodium Chloride 1,000 mls @ 75 mls/hr 04/03/19 23:00 04/04/19 06:26 Nacl 0.9% 1000 Ml IV 75 mls/hr DIRECT LEANDRO Administration Ceftriaxone Sodium 1 gm in 50 mls @ 100 mls/hr 04/04/19 10:00 04/04/19 14:21 Rocephin/Ns 1 Gm/50 Ml IV Not Given Q24HR [facility] Protocol Insulin Human Isoph/Insulin Regular 25 unit 04/04/19 08:00 04/04/19 14:21 Humulin 70/30 SUB-Q Not Given BIDDIAB LEANDRO Lisinopril 20 mg 04/04/19 10:00 04/04/19 14:19 Zestril PO 20 mg QDAY LEANDRO Administration Metformin HCl 1,000 mg 04/04/19 08:00 04/04/19 14:20 Glucophage PO Not Given BIDDIAB LEANDRO Ondansetron HCl 4 mg 04/03/19 22:05 Zofran IV Q8H PRN Nausea And Vomiting Oxycodone/Acetaminophen 1 tab 04/03/19 22:05 04/04/19 14:19 Percocet 5/325 PO 1 tab Q6H PRN Administration Pain, Moderate (4-6) Sodium Chloride 10 ml 04/04/19 10:00 04/04/19 14:21 Sodium Chloride Flush Syringe 10 Ml IV Not Given BID LEANDRO Sodium Chloride 10 ml 04/03/19 22:05 04/03/19 23:08 Sodium Chloride Flush Syringe 10 Ml IV 10 ml PRN PRN Administration LINE FLUSH Nutrition/Malnutrition Assess - Dietary Evaluation Nutrition/Malnutrition Findings: Nutrition Notes Start: 04/04/19 11:06 Freq: Status: Active Protocol: Document 04/04/19 11:06 DW (Rec: 04/04/19 11:34 DW [id number]) Co-Sign 04/04/19 11:06 LP Nutrition Notes Need for Assessment generated from: MD Order,Education Initial or Follow up Assessment Current Diagnosis Diabetes,Hypertension Other Pertinent Diagnosis Hx Prostate Cancer Current Diet Regular Labs/Tests A1C: 11.7 Glu: 100 Pertinent Medications Reviewed Height 5 ft 7 in Weight 81 kg [place] Body Weight (kg) 67.27 BMI 27.9 Subjective/Other Information MD consult for DM education and ONS Pt stated he was recently dx with DM a few weeks ago. He stated he was given some education in the past. Pt stated he checks his BG TID. Pt also stated he receives meals through his insurance and consumes 3 meals/day. Pt consumed 100% of breakfast but does not want ONS. Pt also stated he has no recent wt loss. Burn Absent Trauma Absent GI Symptoms None Minimum of two criteria No physical signs of malnutrition #1 Nutrition Diagnosis Food and nutrition-related knowledge deficit Etiology pt had minimal knowledge of DM diet As Evidenced by Signs and Symptoms pt needed additional education and A1C 11.7 Is patient on ventilator? No Is Patient Ambulatory and/or Out of Bed Yes REE-([facility]-ambulatory/OOB) [ NUTR.MSJOOB] Calculation Used for Recommendations [facility] Additional Notes PRO needs: 81-97g (1-1.2 g/kg) Fluid needs: 1 mL/kcal Nutrition Intervention Change Diet Order: Continue Current Diet Add Supplement/Snack (indicate name/kcal d/c Ensure /protein ) Teaching Recipient Patient Learning Readiness Good Teaching Methods Discussion,Handout Response to Teaching Verbalize understanding Education Handouts Provided CHO counting Barriers to Learning Physical,Age related RD phone number provided Yes Patient aware of follow up options Yes Goal #1 Adhere to DM diet Anticipated Discharge Needs: Consistent CHO Revisit per MD consult or patient Sign Off request:
[2019-04-04 21:16] LABS: Hematocrit 28.8 % (35.5-45.6); Hemoglobin 9.4 gm/dl (11.8-15.2)
[2019-04-04] MEDS ORDERED: ENOXAPARIN 40 MG/0.4 ML INJ SUB-Q SCH (22:00)
[2019-04-05 00:38] LABS: Hematocrit 27.7 % (35.5-45.6); Hemoglobin 9.3 gm/dl (11.8-15.2)
[2019-04-05] MEDS: oxyCODONE /ACETAMINOPHEN 5-325MG TAB PO PRN ×3 (01:54→22:37)
[2019-04-05 06:38] LABS: Hematocrit 25.5 % (35.5-45.6); Hemoglobin 8.6 gm/dl (11.8-15.2)
[2019-04-05] MEDS: GABAPENTIN 400 MG CAP PO SCH ×3 (08:00→20:44)
[2019-04-05] MEDS: metFORMIN 500 MG TAB PO SCH ×2 (08:38→17:32)
[2019-04-05] MEDS: INSULIN NPH/REGULAR 70/30 INJ SUB-Q SCH ×2 (08:38→17:32)
[2019-04-05] MEDS: cefTRIAXone/NS 1 GM/50 ML 1 GM/50 ML BAG IV SCH (10:26)
[2019-04-05] MEDS: ASPIRIN EC 81 MG TAB PO SCH (10:26)
[2019-04-05] MEDS: LISINOPRIL 20 MG TAB PO SCH (10:27)
[2019-04-05] MEDS: FAMOTIDINE 20 MG TAB PO SCH ×2 (10:27→22:17)
[2019-04-05 11:48] LABS: Hematocrit 26.9 % (35.5-45.6); Hemoglobin 9.1 gm/dl (11.8-15.2)
--- NOTE | 2019-04-05 15:33 | Progress Note ---
Assessment and Plan Assessment and plan: Patient is a 63 yo man with a history of IDDM, hypertension, DM neuropathy, dyslipidemia, prostate cancer undergoing XRT and hormonal therapy who presents with syncopal episode. * CT head without contrast IMPRESSION: No evidence for pulmonary embolus. Trace bilateral pleural effusions. Large soft tissue fluid collection along the left lateral thoracic wall as described above. * CTA chest IMPRESSION: No evidence for pulmonary embolus. Trace bilateral pleural effusions. Large soft tissue fluid collection along the left lateral thoracic wall as described above. Syncope appears vasovagal: treat symptomatically Large Left chest/back soft tissue swelling: consulted IR, get ultrasound for possible drainage on Sunday Prostate Cancer: follow up with Oncologist JACINTA UTI/prostatitis: treat with iv rocephin, follow urine culture==>change ABX to Bactrim Hypertension: low salt diet DVt ppx scd only possible back hematoma Disposition: continue inpatient care, await chest wall ultrasound results History Interval history: Patient was seen and examined. Follow-up on current diagnosis of syncope. No overnight events reported to me. Patient denies any chest pain, shortness breath, nausea/vomiting or severe headaches. Imaging, nursing note, chart, labs and old chart reviewed. Discussed with patient. Hospitalist Physical - Physical exam Narrative exam: Gen: WDWN, NAD, Awake, Alert, Orientated HEENT: NCAT, EOMI, PERRL, OP Clear Neck: supple, no adenopathy, no thyromegaly, no JVD CVS/Heart: RRR, normal S1S2, pulses present bilaterally Chest/Lungs: CTA B, Symmetrical chest expansion, good air entry bilaterally, left chest wall tenderness GI/Abdomen: soft, NTND, good bowel sounds, no guarding or rebound /Bladder: no suprapubic tenderness, no CVA or paraspinal tenderness Extermity/Skin: large tender moveable swelling left scapula area MSK: FROM x 4 Neuro: CN 2-12 grossly intact, no new focal deficits Psych: calm - Constitutional Vitals: Temp Pulse Resp BP Pulse Ox 98.7 F 110 H 19 102/64 99 04/05/19 05:00 04/05/19 11:54 04/05/19 11:54 04/05/19 10:27 04/05/19 11:54 Results - Labs CBC & Chem 7: 04/05/19 11:38 04/04/19 04:50 Labs: Laboratory Last Values WBC 10.2 K/mm3 (4.5-11.0) 04/03/19 11:09 RBC 3.14 M/mm3 (3.65-5.03) L 04/03/19 11:09 Hgb 9.1 gm/dl (11.8-15.2) L 04/05/19 11:38 Hct 26.9 % (35.5-45.6) L 04/05/19 11:38 MCV 90 fl (84-94) 04/03/19 11:09 MCH 30 pg (28-32) 04/03/19 11:09 MCHC 33 % (32-34) 04/03/19 11:09 RDW 15.7 % (13.2-15.2) H 04/03/19 11:09 Plt Count 355 K/mm3 (140-440) 04/03/19 11:09 Lymph % (Auto) Parking Meter Servicer 04/03/19 11:09 [place] % (Auto) Parking Meter Servicer 04/03/19 11:09 Eos % (Auto) Parking Meter Servicer 04/03/19 11:09 Baso % (Auto) Parking Meter Servicer 04/03/19 11:09 Lymph # Parking Meter Servicer 04/03/19 11:09 [place] # Parking Meter Servicer 04/03/19 11:09 Eos # Parking Meter Servicer 04/03/19 11:09 Baso # Parking Meter Servicer 04/03/19 11:09 Add Manual Diff Complete 04/03/19 11:09 Total Counted 100 04/03/19 11:09 Seg Neutrophils % Parking Meter Servicer 04/03/19 11:09 Seg Neuts % (Manual) 68.0 % (40.0-70.0) 04/03/19 11:09 Band Neutrophils % 5.0 % 04/03/19 11:09 Lymphocytes % (Manual) 8.0 % (13.4-35.0) L 04/03/19 11:09 Reactive Lymphs % (Man) 0 % 04/03/19 11:09 Monocytes % (Manual) 17.0 % (0.0-7.3) H 04/03/19 11:09 Eosinophils % (Manual) 0 % (0.0-4.3) 04/03/19 11:09 Basophils % (Manual) 0 % (0.0-1.8) 04/03/19 11:09 Metamyelocytes % 2.0 % 04/03/19 11:09 Myelocytes % 0 % 04/03/19 11:09 Promyelocytes % 0 % 04/03/19 11:09 Blast Cells % 0 % 04/03/19 11:09 Nucleated RBC % Not Reportable 04/03/19 11:09 Seg Neutrophils # Parking Meter Servicer 04/03/19 11:09 Seg Neutrophils # Man 6.9 K/mm3 (1.8-7.7) 04/03/19 11:09 Band Neutrophils # 0.5 K/mm3 04/03/19 11:09 Lymphocytes # (Manual) 0.8 K/mm3 (1.2-5.4) L 04/03/19 11:09 Abs React Lymphs (Man) 0.0 K/mm3 04/03/19 11:09 Monocytes # (Manual) 1.7 K/mm3 (0.0-0.8) H 04/03/19 11:09 Eosinophils # (Manual) 0.0 K/mm3 (0.0-0.4) 04/03/19 11:09 Basophils # (Manual) 0.0 K/mm3 (0.0-0.1) 04/03/19 11:09 Metamyelocytes # 0.2 K/mm3 04/03/19 11:09 Myelocytes # 0.0 K/mm3 04/03/19 11:09 Promyelocytes # 0.0 K/mm3 04/03/19 11:09 Blast Cells # 0.0 K/mm3 04/03/19 11:09 WBC Morphology Not Reportable 04/03/19 11:09 Hypersegmented Neuts Not Reportable 04/03/19 11:09 Hyposegmented Neuts Not Reportable 04/03/19 11:09 Hypogranular Neuts Not Reportable 04/03/19 11:09 Smudge Cells Not Reportable 04/03/19 11:09 Toxic Granulation Not Reportable 04/03/19 11:09 Toxic Vacuolation Not Reportable 04/03/19 11:09 Dohle Bodies Not Reportable 04/03/19 11:09 Pelger-Huet Anomaly Not Reportable 04/03/19 11:09 Jhonny Rods Not Reportable 04/03/19 11:09 Platelet Estimate Consistent w auto 04/03/19 11:09 Clumped Platelets Few 04/03/19 11:09 Plt Clumps, EDTA Not Reportable 04/03/19 11:09 Large Platelets Not Reportable 04/03/19 11:09 Giant Platelets Not Reportable 04/03/19 11:09 Platelet Satelliting Not Reportable 04/03/19 11:09 Plt Morphology Comment Not Reportable 04/03/19 11:09 RBC Morphology Not Reportable 04/03/19 11:09 Dimorphic RBCs Not Reportable 04/03/19 11:09 Polychromasia Not Reportable 04/03/19 11:09 Hypochromasia Not Reportable 04/03/19 11:09 Poikilocytosis Not Reportable 04/03/19 11:09 Anisocytosis 1+ 04/03/19 11:09 Microcytosis Not Reportable 04/03/19 11:09 Macrocytosis Not Reportable 04/03/19 11:09 Spherocytes Not Reportable 04/03/19 11:09 Pappenheimer Bodies Not Reportable 04/03/19 11:09 Sickle Cells Not Reportable 04/03/19 11:09 Target Cells Not Reportable 04/03/19 11:09 Tear Drop Cells Not Reportable 04/03/19 11:09 Ovalocytes Not Reportable 04/03/19 11:09 Helmet Cells Not Reportable 04/03/19 11:09 [place] Bodies Not Reportable 04/03/19 11:09 [place] Rings Not Reportable 04/03/19 11:09 [place] Cells Not Reportable 04/03/19 11:09 Bite Cells Not Reportable 04/03/19 11:09 Crenated Cell Not Reportable 04/03/19 11:09 Elliptocytes Not Reportable 04/03/19 11:09 Acanthocytes (Spur) Not Reportable 04/03/19 11:09 Rouleaux Not Reportable 04/03/19 11:09 Hemoglobin C Crystals Not Reportable 04/03/19 11:09 Schistocytes Not Reportable 04/03/19 11:09 Malaria parasites Not Reportable 04/03/19 11:09 Jaleel Bodies Not Reportable 04/03/19 11:09 Hem Pathologist Commnt No 04/03/19 11:09 D-Dimer 1568.02 ng/mlDDU (0-234) H 04/03/19 12:20 Sodium 137 mmol/L (137-145) 04/04/19 04:50 Potassium 3.9 mmol/L (3.6-5.0) 04/04/19 04:50 Chloride 104.5 mmol/L (98-107) 04/04/19 04:50 Carbon Dioxide 20 mmol/L (22-30) L 04/04/19 04:50 Anion Gap 16 mmol/L 04/04/19 04:50 BUN 15 mg/dL (9-20) 04/04/19 04:50 Creatinine 0.8 mg/dL (0.8-1.5) 04/04/19 04:50 Estimated GFR > 60 ml/min 04/04/19 04:50 BUN/Creatinine Ratio 19 % 04/04/19 04:50 Glucose 100 mg/dL (75-100) 04/04/19 04:50 POC Glucose 162 (70-105) H 04/05/19 12:07 Hemoglobin A1c 11.7 % (4-6) H 04/03/19 22:47 Calcium 8.9 mg/dL (8.4-10.2) 04/04/19 04:50 Phosphorus 3.20 mg/dL (2.5-4.5) 04/03/19 11:09 Magnesium 2.00 mg/dL (1.7-2.3) 04/03/19 11:09 Total Bilirubin 0.30 mg/dL (0.1-1.2) 04/04/19 04:50 AST 37 units/L (5-40) 04/04/19 04:50 ALT 44 units/L (7-56) 04/04/19 04:50 Alkaline Phosphatase 78 units/L (35-129) 04/04/19 04:50 Troponin T < 0.010 ng/mL (0.00-0.029) 04/03/19 11:09 Total Protein 6.7 g/dL (6.3-8.2) 04/04/19 04:50 Albumin 2.3 g/dL (3.9-5) L 04/04/19 04:50 Albumin/Globulin Ratio 0.5 % 04/04/19 04:50 Urine Color Yellow (Yellow) 04/03/19 Unknown Urine Turbidity Slightly-cloudy (Clear) 04/03/19 Unknown Urine pH 5.0 (5.0-7.0) 04/03/19 Unknown Ur Specific [place] 1.015 (1.003-1.030) 04/03/19 Unknown Urine Protein 30 mg/dl mg/dL (Negative) 04/03/19 Unknown Urine Glucose (UA) Neg mg/dL (Negative) 04/03/19 Unknown Urine Ketones Neg mg/dL (Negative) 04/03/19 Unknown Urine Blood Sm (Negative) 04/03/19 Unknown Urine Nitrite Neg (Negative) 04/03/19 Unknown Urine Bilirubin Neg (Negative) 04/03/19 Unknown Urine Urobilinogen 4.0 mg/dL (<2.0) 04/03/19 Unknown Ur Leukocyte Esterase Tr (Negative) 04/03/19 Unknown Urine WBC (Auto) 17.0 /HPF (0.0-6.0) H 04/03/19 Unknown Urine RBC (Auto) 7.0 /HPF (0.0-6.0) 04/03/19 Unknown U Epithel Cells (Auto) < 1.0 /HPF (0-13.0) 04/03/19 Unknown Urine Mucus Few /HPF 04/03/19 Unknown Active Medications - Current Medications Current Medications: Generic Name Dose Route Start Last Admin Trade Name Freq PRN Reason Stop Dose Admin Acetaminophen 650 mg 04/03/19 22:05 Tylenol PO Q4H PRN Pain MILD(1-3)/Fever >100.5/SUAREZ Aspirin 81 mg 04/04/19 10:00 04/05/19 10:26 Halfprin Ec PO 81 mg QDAY LEANDRO Administration Atorvastatin Calcium 80 mg 04/03/19 23:00 04/04/19 21:51 Lipitor PO 80 mg QHS LEANDRO Administration Famotidine 20 mg 04/03/19 23:00 04/05/19 10:27 Pepcid PO 20 mg BID LEANDRO Administration Gabapentin 800 mg 04/04/19 08:00 04/05/19 14:22 Gabapentin PO 800 mg TID LEANDRO Administration Hydromorphone HCl 0.5 mg 04/03/19 22:05 Dilaudid IV Q3H PRN Pain , Severe (7-10) Sodium Chloride 1,000 mls @ 75 mls/hr 04/03/19 23:00 04/04/19 06:26 Nacl 0.9% 1000 Ml IV 75 mls/hr DIRECT LEANDRO Administration Ceftriaxone Sodium 1 gm in 50 mls @ 100 mls/hr 04/04/19 10:00 04/05/19 10:26 Rocephin/Ns 1 Gm/50 Ml IV 100 mls/hr Q24HR LEANDRO Administration Protocol Insulin Human Isoph/Insulin Regular 25 unit 04/04/19 08:00 04/05/19 08:38 Humulin 70/30 SUB-Q Not Given BIDDIAB LEANDRO Lisinopril 20 mg 04/04/19 10:00 04/05/19 10:27 Zestril PO Not Given QDAY LEANDRO Metformin HCl 1,000 mg 04/04/19 08:00 04/05/19 08:38 Glucophage PO Not Given BIDDIAB LEANDRO Ondansetron HCl 4 mg 04/03/19 22:05 Zofran IV Q8H PRN Nausea And Vomiting Oxycodone/Acetaminophen 1 tab 04/03/19 22:05 04/05/19 10:30 Percocet 5/325 PO 1 tab Q6H PRN Administration Pain, Moderate (4-6) Sodium Chloride 10 ml 04/04/19 10:00 04/05/19 10:27 Sodium Chloride Flush Syringe 10 Ml IV 10 ml BID LEANDRO Administration Sodium Chloride 10 ml 04/03/19 22:05 04/03/19 23:08 Sodium Chloride Flush Syringe 10 Ml IV 10 ml PRN PRN Administration LINE FLUSH Nutrition/Malnutrition Assess - Dietary Evaluation Nutrition/Malnutrition Findings: Nutrition Notes Start: 04/04/19 11:06 Freq: Status: Active Protocol: Document 04/04/19 11:06 FEROZ (Rec: 04/04/19 11:34 FEROZ [id number]) Co-Sign 04/04/19 11:06 LP Nutrition Notes Need for Assessment generated from: MD Order,Education Initial or Follow up Assessment Current Diagnosis Diabetes,Hypertension Other Pertinent Diagnosis Hx Prostate Cancer Current Diet Regular Labs/Tests A1C: 11.7 Glu: 100 Pertinent Medications Reviewed Height 5 ft 7 in Weight 81 kg [place] Body Weight (kg) 67.27 BMI 27.9 Subjective/Other Information MD consult for DM education and ONS Pt stated he was recently dx with DM a few weeks ago. He stated he was given some education in the past. Pt stated he checks his BG TID. Pt also stated he receives meals through his insurance and consumes 3 meals/day. Pt consumed 100% of breakfast but does not want ONS. Pt also stated he has no recent wt loss. Burn Absent Trauma Absent GI Symptoms None Minimum of two criteria No physical signs of malnutrition #1 Nutrition Diagnosis Food and nutrition-related knowledge deficit Etiology pt had minimal knowledge of DM diet As Evidenced by Signs and Symptoms pt needed additional education and A1C 11.7 Is patient on ventilator? No Is Patient Ambulatory and/or Out of Bed Yes REE-([facility]-ambulatory/OOB) [ [id number]] Calculation Used for Recommendations [facility] Additional Notes PRO needs: 81-97g (1-1.2 g/kg) Fluid needs: 1 mL/kcal Nutrition Intervention Change Diet Order: Continue Current Diet Add Supplement/Snack (indicate name/kcal d/c Ensure /protein ) Teaching Recipient Patient Learning Readiness Good Teaching Methods Discussion,Handout Response to Teaching Verbalize understanding Education Handouts Provided CHO counting Barriers to Learning Physical,Age related RD phone number provided Yes Patient aware of follow up options Yes Goal #1 Adhere to DM diet Anticipated Discharge Needs: Consistent CHO Revisit per MD consult or patient Sign Off request:
[2019-04-05] MEDS: SODIUM CHLORIDE 0.9% 1000 ML 1,000 ML IV SCH (17:33)
[2019-04-05] MEDS: SULFAMETHOXAZOLE/TRIMETHOPRIM 800/160MG DS TAB PO SCH (17:39)
[2019-04-05 19:36] LABS: Hemoglobin 10.9 gm/dl (11.8-15.2)
--- NOTE | 2019-04-05 20:18 | Consultation ---
History of Present Illness - Reason for Consult Consult date: 04/05/19 Soft Tissue Hematoma Requesting physician: HADLEY BRANTLEY - History of Present Illness The patient is a 63-year-old male who was brought to the emergency department after a reported syncopal episode. He states that he was at a doctor's visit when he was seen in a chair and began to feel lightheaded and the next thing he remembered was being surrounded by multiple nurses. He reports having a similar episode at the [facility] 3 weeks prior.. He has a history of prostate cancer and is undergoing treatment which he says makes him somewhat weak. 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 He states that approximately 2 weeks ago he was fairly weak and required a significant effort to pull himself into the truck. During 2 of his attempts he remembers having significant difficulty and feeling a significant discomfort in his upper chest area that persisted for days however he initially thought this may be gas pain. When the pain did not resolve he went to his primary care physician who prescribed him steroids thinking that it may be a muscular strain with inflammation however shortly after he noted the soft tissue swelling that extended from his left chest and around his flank and to his back. His pain persisted and actually began to worsen so his PCP referred him to an orthopedic surgeon for evaluation of a possible muscle tear. It was during this visit that he had a syncopal episode while waiting to be seen and never had the evaluation. He continues to have significant pain. He had a CTA of his chest while in the emergency department that revealed a large hematoma and additionally presented with an acute blood loss anemia with a hemoglobin of 9 which is a significant change from his previous hemoglobin of 13 during a previous admission. We were asked to evaluate the patient for the fluid collection and possibly place a drain. Past History Past Medical History: cancer (Prostate), diabetes, hypertension, hyperlipidemia Past Surgical History: No surgical history, appendectomy Social history: no significant social history Family history: no significant family history Medications and Allergies Allergies Allergy/AdvReac Type Severity Reaction Status Date / Time No Known Allergies Allergy Verified 04/03/19 10:18 Home Medications Medication Instructions Recorded Confirmed Last Taken Type Gabapentin [Neurontin] 800 mg PO TID 03/14/19 04/05/19 04/05/19 18:57 History Lisinopril [Zestril TAB] 20 mg PO QDAY 03/14/19 04/05/19 Unknown History Rosuvastatin Calcium 40 mg PO BID 03/14/19 04/05/19 Unknown History Aspirin EC [Halfprin EC] 81 mg PO QDAY #30 tablet. 03/17/19 04/05/19 04/05/19 18:57 Rx Insulin NPH/Regular [NovoLIN 70/30] 25 unit SUB-Q BIDDIAB 30 Days #10 03/17/19 04/05/19 Unknown Rx ml Lispro Insulin [HumaLOG] 0 unit SUB-Q ACHS #10 ml 03/17/19 04/05/19 Unknown Rx metFORMIN [Glucophage] 1,000 mg PO BIDDIAB #60 tablet 03/17/19 04/05/19 Unknown Rx Active Meds: Active Medications Acetaminophen (Tylenol) 650 mg PO Q4H PRN PRN Reason: Pain MILD(1-3)/Fever >100.5/SUAREZ Aspirin (Halfprin Ec) 81 mg PO QDAY [facility] Last Admin: 04/05/19 10:26 Dose: 81 mg Documented by: Atorvastatin Calcium (Lipitor) 80 mg PO QHS [facility] Last Admin: 04/04/19 21:51 Dose: 80 mg Documented by: Famotidine (Pepcid) 20 mg PO BID [facility] Last Admin: 04/05/19 10:27 Dose: 20 mg Documented by: Gabapentin (Gabapentin) 800 mg PO TID [facility] Last Admin: 04/05/19 14:22 Dose: 800 mg Documented by: Hydromorphone HCl (Dilaudid) 0.5 mg IV Q3H PRN PRN Reason: Pain , Severe (7-10) Sodium Chloride (Nacl 0.9% 1000 Ml) 1,000 mls @ 75 mls/hr IV DIRECT [facility] Last Admin: 04/05/19 17:33 Dose: 75 mls/hr Documented by: Insulin Human Isoph/Insulin Regular (Humulin 70/30) 25 unit SUB-Q BIDDIAB [facility] Last Admin: 04/05/19 17:32 Dose: Not Given Documented by: Lisinopril (Zestril) 20 mg PO QDAY [facility] Last Admin: 04/05/19 10:27 Dose: Not Given Documented by: Metformin HCl (Glucophage) 1,000 mg PO BIDDIAB [facility] Last Admin: 04/05/19 17:32 Dose: Not Given Documented by: Ondansetron HCl (Zofran) 4 mg IV Q8H PRN PRN Reason: Nausea And Vomiting Oxycodone/Acetaminophen (Percocet 5/325) 1 tab PO Q6H PRN PRN Reason: Pain, Moderate (4-6) Last Admin: 04/05/19 10:30 Dose: 1 tab Documented by: Sodium Chloride (Sodium Chloride Flush Syringe 10 Ml) 10 ml IV BID [facility] Last Admin: 04/05/19 10:27 Dose: 10 ml Documented by: Sodium Chloride (Sodium Chloride Flush Syringe 10 Ml) 10 ml IV PRN PRN PRN Reason: LINE FLUSH Last Admin: 04/03/19 23:08 Dose: 10 ml Documented by: Trimethoprim/Sulfamethoxazole (Bactrim Ds) 1 each PO Q12H [facility] Last Admin: 04/05/19 17:39 Dose: 1 each Documented by: Review of Systems All systems: negative Exam - Constitutional Vitals: Temp Pulse Resp BP Pulse Ox 102.9 F H 112 H 12 115/77 98 04/05/19 19:14 04/05/19 19:14 04/05/19 19:14 04/05/19 19:14 04/05/19 19:14 General appearance: Present: no acute distress - Neck Neck: Present: supple - Respiratory Respiratory effort: normal - Cardiovascular Rhythm: regular - Extremities Extremities: no ischemia, pulses intact, pulses symmetrical - Abdominal General gastrointestinal: Present: deferred Male genitourinary: Present: deferred - Rectal Rectal Exam: deferred - Integumentary Body Four View: 1 - hematoma 2 - hematoma - Musculoskeletal Musculoskeletal: other (Difficulty with abduction of the left arm and limited range of motion with lifting the arm above his head,Tender to palpation left lateral chest and flank.) Results - Labs CBC & Chem 7: 04/05/19 18:45 04/04/19 04:50 Labs: Abnormal lab results 04/04/19 04/04/19 04/05/19 Range/Units 20:41 22:24 00:19 Hgb 9.4 L 9.3 L (11.8-15.2) gm/dl Hct 28.8 L 27.7 L (35.5-45.6) % POC Glucose 110 H (70-105) 04/05/19 04/05/19 04/05/19 Range/Units 04:43 11:38 12:07 Hgb 8.6 L 9.1 L (11.8-15.2) gm/dl Hct 25.5 L 26.9 L (35.5-45.6) % POC Glucose 162 H (70-105) 04/05/19 04/05/19 Range/Units 16:38 18:45 Hgb 10.9 L (11.8-15.2) gm/dl Hct 34.0 L D (35.5-45.6) % POC Glucose 111 H (70-105) - Imaging and Cardiology CT scan - chest: image reviewed (CTA of chest was reviewed and it appears that the hematoma extends from beneath the left pectoralis major and tracks around the left flank towards the back. There is a significant amount of stranding and inflammation in the area which suggest the patient may have injured his left pectoralis major muscle. ) Assessment and Plan The patient is a 63-year-old male who presented with a syncopal episode during his work-up was found to have a left-sided fluid collection that is likely a hematoma. By report he has a likely muscular injury and review of the CTA of h is chest suggested may be in the area of the left pectoralis major muscle. The patient likely requires an MRI of the left chest and shoulder area and would benefit from consultation from an orthopedic surgeon for best management of the injury. At the least he likely requires evacuation of the hematoma for comfort however this would best be done open as the patient will require a washout and possible closed with vacuum suction to decrease the space that would remain after draining the hematoma. I discussed the findings and the plan with the patient who expressed understanding and agrees with the plan.
--- NOTE | 2019-04-05 20:28 | Vascular Lab Report ---
SOFT TISSUE ULTRASOUND OF CHEST INDICATION: left chest mass. COMPARISON: CTA chest 04/03/2019 FINDINGS: A large complex hypervascular fluid collection is seen within the left chest wall measuring 4.2 cm in thickness. No increased color Doppler flow is seen. IMPRESSION: Large loculated complex fluid collection containing gas bubbles on CT within the left lat eral chest wall characteristic for soft tissue abscess. Signer Name: New Lemon MD Signed: 04/05/2019 8:23 PM Workstation Name: [id number]
[2019-04-05] MEDS: ACETAMINOPHEN 325 MG TAB PO PRN (20:44)
[2019-04-06 00:32] LABS: Hemoglobin 8.6 gm/dl (11.8-15.2)
[2019-04-06 00:42] LABS: Hematocrit 25.4 % (35.5-45.6)
[2019-04-06] MEDS: SULFAMETHOXAZOLE/TRIMETHOPRIM 800/160MG DS TAB PO SCH ×2 (06:13→17:19)
[2019-04-06] MEDS: SODIUM CHLORIDE 0.9% 1000 ML 1,000 ML IV SCH ×2 (06:17→21:35)
[2019-04-06 07:46] LABS: Hematocrit 25.5 % (35.5-45.6); Hemoglobin 8.5 gm/dl (11.8-15.2); Mean Corpuscular HGB Conc 33 % (32-34); Mean Corpuscular Volume 90 fl (84-94); Platelet Count 370 K/mm3 (140-440); Red Blood Count 2.85 M/mm3 (3.65-5.03); Red Cell Distribution Width 15.6 % (13.2-15.2)
[2019-04-06] MEDS: GABAPENTIN 400 MG CAP PO SCH ×3 (08:00→20:50)
[2019-04-06 08:08] LABS: BUN/Creatinine Ratio 10; Blood Urea Nitrogen 8 mg/dL (9-20); Calcium 8.4 mg/dL (8.4-10.2); Hemolysis Index 1
[2019-04-06] MEDS: metFORMIN 500 MG TAB PO SCH ×2 (09:32→17:29)
[2019-04-06] MEDS: INSULIN NPH/REGULAR 70/30 INJ SUB-Q SCH ×2 (09:32→17:29)
[2019-04-06] MEDS: ASPIRIN EC 81 MG TAB PO SCH (09:33)
[2019-04-06] MEDS: FAMOTIDINE 20 MG TAB PO SCH ×2 (09:33→21:32)
[2019-04-06] MEDS: LISINOPRIL 20 MG TAB PO SCH (09:34)
[2019-04-06] MEDS: oxyCODONE /ACETAMINOPHEN 5-325MG TAB PO PRN (09:36)
--- NOTE | 2019-04-06 14:38 | Progress Note ---
Assessment and Plan Assessment and plan: Patient is a 63 yo man with a history of IDDM, hypertension, DM neuropathy, dyslipidemia, prostate cancer undergoing XRT and hormonal therapy who presents with syncopal episode. * CT head without contrast IMPRESSION: No evidence for pulmonary embolus. Trace bilateral pleural effusions. Large soft tissue fluid collection along the left lateral thoracic wall as described above. * CTA chest IMPRESSION: No evidence for pulmonary embolus. Trace bilateral pleural effusions. Large soft tissue fluid collection along the left lateral thoracic wall as described above. Syncope appears vasovagal: treat symptomatically Large Left chest/back soft tissue swelling: consulted IR, get ultrasound for possible drainage on Sunday Prostate Cancer: follow up with Oncologist JACINTA UTI/prostatitis: treat with iv rocephin, follow urine culture==>change ABX to Bactrim Hypertension: low salt diet DVt ppx scd only possible back hematoma Disposition: continue inpatient care, chest wall ultrasound reviewed, Soft Tissue ultrasound of chest Impression: Large loculated complex hypervascular fluid collection containing gas bubbles on CT within the left lateral chest wall characteristic for soft tissue abscess, I will reach out with Surgery for direction. History Interval history: Patient was seen and examined. Follow-up on current diagnosis of syncope. No overnight events reported to me. Patient denies any chest pain, shortness breath, nausea/vomiting or severe headaches. Imaging, nursing note, chart, labs and old chart reviewed. Discussed with patient. Hospitalist Physical - Physical exam Narrative exam: Gen: WDWN, NAD, Awake, Alert, Orientated HEENT: NCAT, EOMI, PERRL, OP Clear Neck: supple, no adenopathy, no thyromegaly, no JVD CVS/Heart: RRR, normal S1S2, pulses present bilaterally Chest/Lungs: CTA B, Symmetrical chest expansion, good air entry bilaterally, left chest wall tenderness GI/Abdomen: soft, NTND, good bowel sounds, no guarding or rebound /Bladder: no suprapubic tenderness, no CVA or paraspinal tenderness Extermity/Skin: large tender moveable swelling left scapula area MSK: FROM x 4 Neuro: CN 2-12 grossly intact, no new focal deficits Psych: calm - Constitutional Vitals: Temp Pulse Resp BP Pulse Ox 99.3 F 89 18 108/64 99 04/06/19 11:30 04/06/19 12:00 04/06/19 11:30 04/06/19 11:30 04/06/19 11:30 General appearance: Present: no acute distress Results - Labs CBC & Chem 7: 04/06/19 07:06 04/06/19 07:06 Labs: Laboratory Last Values WBC 8.7 K/mm3 (4.5-11.0) 04/06/19 07:06 RBC 2.85 M/mm3 (3.65-5.03) L 04/06/19 07:06 Hgb 8.5 gm/dl (11.8-15.2) L 04/06/19 07:06 Hct 25.5 % (35.5-45.6) L 04/06/19 07:06 MCV 90 fl (84-94) 04/06/19 07:06 MCH 30 pg (28-32) 04/06/19 07:06 MCHC 33 % (32-34) 04/06/19 07:06 RDW 15.6 % (13.2-15.2) H 04/06/19 07:06 Plt Count 370 K/mm3 (140-440) 04/06/19 07:06 Lymph % (Auto) [facility] Supervisor 04/03/19 11:09 [place] % (Auto) [facility] Supervisor 04/03/19 11:09 Eos % (Auto) [facility] Supervisor 04/03/19 11:09 Baso % (Auto) [facility] Supervisor 04/03/19 11:09 Lymph # [facility] Supervisor 04/03/19 11:09 [place] # [facility] Supervisor 04/03/19 11:09 Eos # [facility] Supervisor 04/03/19 11:09 Baso # [facility] Supervisor 04/03/19 11:09 Add Manual Diff Complete 04/03/19 11:09 Total Counted 100 04/03/19 11:09 Seg Neutrophils % [facility] Supervisor 04/03/19 11:09 Seg Neuts % (Manual) 68.0 % (40.0-70.0) 04/03/19 11:09 Band Neutrophils % 5.0 % 04/03/19 11:09 Lymphocytes % (Manual) 8.0 % (13.4-35.0) L 04/03/19 11:09 Reactive Lymphs % (Man) 0 % 04/03/19 11:09 Monocytes % (Manual) 17.0 % (0.0-7.3) H 04/03/19 11:09 Eosinophils % (Manual) 0 % (0.0-4.3) 04/03/19 11:09 Basophils % (Manual) 0 % (0.0-1.8) 04/03/19 11:09 Metamyelocytes % 2.0 % 04/03/19 11:09 Myelocytes % 0 % 04/03/19 11:09 Promyelocytes % 0 % 04/03/19 11:09 Blast Cells % 0 % 04/03/19 11:09 Nucleated RBC % Not Reportable 04/03/19 11:09 Seg Neutrophils # [facility] Supervisor 04/03/19 11:09 Seg Neutrophils # Man 6.9 K/mm3 (1.8-7.7) 04/03/19 11:09 Band Neutrophils # 0.5 K/mm3 04/03/19 11:09 Lymphocytes # (Manual) 0.8 K/mm3 (1.2-5.4) L 04/03/19 11:09 Abs React Lymphs (Man) 0.0 K/mm3 04/03/19 11:09 Monocytes # (Manual) 1.7 K/mm3 (0.0-0.8) H 04/03/19 11:09 Eosinophils # (Manual) 0.0 K/mm3 (0.0-0.4) 04/03/19 11:09 Basophils # (Manual) 0.0 K/mm3 (0.0-0.1) 04/03/19 11:09 Metamyelocytes # 0.2 K/mm3 04/03/19 11:09 Myelocytes # 0.0 K/mm3 04/03/19 11:09 Promyelocytes # 0.0 K/mm3 04/03/19 11:09 Blast Cells # 0.0 K/mm3 04/03/19 11:09 WBC Morphology Not Reportable 04/03/19 11:09 Hypersegmented Neuts Not Reportable 04/03/19 11:09 Hyposegmented Neuts Not Reportable 04/03/19 11:09 Hypogranular Neuts Not Reportable 04/03/19 11:09 Smudge Cells Not Reportable 04/03/19 11:09 Toxic Granulation Not Reportable 04/03/19 11:09 Toxic Vacuolation Not Reportable 04/03/19 11:09 Dohle Bodies Not Reportable 04/03/19 11:09 Pelger-Huet Anomaly Not Reportable 04/03/19 11:09 Jhonny Rods Not Reportable 04/03/19 11:09 Platelet Estimate Consistent w auto 04/03/19 11:09 Clumped Platelets Few 04/03/19 11:09 Plt Clumps, EDTA Not Reportable 04/03/19 11:09 Large Platelets Not Reportable 04/03/19 11:09 Giant Platelets Not Reportable 04/03/19 11:09 Platelet Satelliting Not Reportable 04/03/19 11:09 Plt Morphology Comment Not Reportable 04/03/19 11:09 RBC Morphology Not Reportable 04/03/19 11:09 Dimorphic RBCs Not Reportable 04/03/19 11:09 Polychromasia Not Reportable 04/03/19 11:09 Hypochromasia Not Reportable 04/03/19 11:09 Poikilocytosis Not Reportable 04/03/19 11:09 Anisocytosis 1+ 04/03/19 11:09 Microcytosis Not Reportable 04/03/19 11:09 Macrocytosis Not Reportable 04/03/19 11:09 Spherocytes Not Reportable 04/03/19 11:09 Pappenheimer Bodies Not Reportable 04/03/19 11:09 Sickle Cells Not Reportable 04/03/19 11:09 Target Cells Not Reportable 04/03/19 11:09 Tear Drop Cells Not Reportable 04/03/19 11:09 Ovalocytes Not Reportable 04/03/19 11:09 Helmet Cells Not Reportable 04/03/19 11:09 [place]-Milo Bodies Not Reportable 04/03/19 11:09 [place] Rings Not Reportable 04/03/19 11:09 [place] Cells Not Reportable 04/03/19 11:09 Bite Cells Not Reportable 04/03/19 11:09 Crenated Cell Not Reportable 04/03/19 11:09 Elliptocytes Not Reportable 04/03/19 11:09 Acanthocytes (Spur) Not Reportable 04/03/19 11:09 Rouleaux Not Reportable 04/03/19 11:09 Hemoglobin C Crystals Not Reportable 04/03/19 11:09 Schistocytes Not Reportable 04/03/19 11:09 Malaria parasites Not Reportable 04/03/19 11:09 Jaleel Bodies Not Reportable 04/03/19 11:09 Hem Pathologist Commnt No 04/03/19 11:09 D-Dimer 1568.02 ng/mlDDU (0-234) H 04/03/19 12:20 Sodium 138 mmol/L (137-145) 04/06/19 07:06 Potassium 3.8 mmol/L (3.6-5.0) 04/06/19 07:06 Chloride 106.4 mmol/L (98-107) 04/06/19 07:06 Carbon Dioxide 19 mmol/L (22-30) L 04/06/19 07:06 Anion Gap 16 mmol/L 04/06/19 07:06 BUN 8 mg/dL (9-20) L 04/06/19 07:06 Creatinine 0.8 mg/dL (0.8-1.5) 04/06/19 07:06 Estimated GFR > 60 ml/min 04/06/19 07:06 BUN/Creatinine Ratio 10 % 04/06/19 07:06 Glucose 100 mg/dL (75-100) 04/06/19 07:06 POC Glucose 150 (70-105) H 04/06/19 11:46 Hemoglobin A1c 11.7 % (4-6) H 04/03/19 22:47 Calcium 8.4 mg/dL (8.4-10.2) 04/06/19 07:06 Phosphorus 3.20 mg/dL (2.5-4.5) 04/03/19 11:09 Magnesium 2.00 mg/dL (1.7-2.3) 04/03/19 11:09 Total Bilirubin 0.30 mg/dL (0.1-1.2) 04/04/19 04:50 AST 37 units/L (5-40) 04/04/19 04:50 ALT 44 units/L (7-56) 04/04/19 04:50 Alkaline Phosphatase 78 units/L (35-129) 04/04/19 04:50 Troponin T < 0.010 ng/mL (0.00-0.029) 04/03/19 11:09 Total Protein 6.7 g/dL (6.3-8.2) 04/04/19 04:50 Albumin 2.3 g/dL (3.9-5) L 04/04/19 04:50 Albumin/Globulin Ratio 0.5 % 04/04/19 04:50 Urine Color Yellow (Yellow) 04/03/19 Unknown Urine Turbidity Slightly-cloudy (Clear) 04/03/19 Unknown Urine pH 5.0 (5.0-7.0) 04/03/19 Unknown Ur Specific [place] 1.015 (1.003-1.030) 04/03/19 Unknown Urine Protein 30 mg/dl mg/dL (Negative) 04/03/19 Unknown Urine Glucose (UA) Neg mg/dL (Negative) 04/03/19 Unknown Urine Ketones Neg mg/dL (Negative) 04/03/19 Unknown Urine Blood Sm (Negative) 04/03/19 Unknown Urine Nitrite Neg (Negative) 04/03/19 Unknown Urine Bilirubin Neg (Negative) 04/03/19 Unknown Urine Urobilinogen 4.0 mg/dL (<2.0) 04/03/19 Unknown Ur Leukocyte Esterase Tr (Negative) 04/03/19 Unknown Urine WBC (Auto) 17.0 /HPF (0.0-6.0) H 04/03/19 Unknown Urine RBC (Auto) 7.0 /HPF (0.0-6.0) 04/03/19 Unknown U Epithel Cells (Auto) < 1.0 /HPF (0-13.0) 04/03/19 Unknown Urine Mucus Few /HPF 04/03/19 Unknown Active Medications - Current Medications Current Medications: Generic Name Dose Route Start Last Admin Trade Name Freq PRN Reason Stop Dose Admin Acetaminophen 650 mg 04/03/19 22:05 04/05/19 20:44 Tylenol PO 650 mg Q4H PRN Administration Pain MILD(1-3)/Fever >100.5/SUAREZ Aspirin 81 mg 04/04/19 10:00 04/06/19 09:33 Halfprin Ec PO 81 mg QDAY LEANDRO Administration Atorvastatin Calcium 80 mg 04/03/19 23:00 04/05/19 22:18 Lipitor PO 80 mg QHS LEANDRO Administration Famotidine 20 mg 04/03/19 23:00 04/06/19 09:33 Pepcid PO 20 mg BID LEANDRO Administration Gabapentin 800 mg 04/04/19 08:00 04/06/19 14:19 Gabapentin PO 800 mg TID LEANDRO Administration Hydromorphone HCl 0.5 mg 04/03/19 22:05 Dilaudid IV Q3H PRN Pain , Severe (7-10) Sodium Chloride 1,000 mls @ 75 mls/hr 04/03/19 23:00 04/06/19 06:17 Nacl 0.9% 1000 Ml IV 75 mls/hr DIRECT LEANDRO Administration Insulin Human Isoph/Insulin Regular 25 unit 04/04/19 08:00 04/06/19 09:32 Humulin 70/30 SUB-Q Not Given BIDDIAB LEANDRO Lisinopril 20 mg 04/04/19 10:00 04/06/19 09:34 Zestril PO Not Given QDAY LEANDRO Metformin HCl 1,000 mg 04/04/19 08:00 04/06/19 09:32 Glucophage PO Not Given BIDDIAB LEANDRO Ondansetron HCl 4 mg 04/03/19 22:05 Zofran IV Q8H PRN Nausea And Vomiting Oxycodone/Acetaminophen 1 tab 04/03/19 22:05 04/06/19 09:36 Percocet 5/325 PO 1 tab Q6H PRN Administration Pain, Moderate (4-6) Sodium Chloride 10 ml 04/04/19 10:00 04/06/19 09:33 Sodium Chloride Flush Syringe 10 Ml IV 10 ml BID LEANDRO Administration Sodium Chloride 10 ml 04/03/19 22:05 04/03/19 23:08 Sodium Chloride Flush Syringe 10 Ml IV 10 ml PRN PRN Administration LINE FLUSH Trimethoprim/Sulfamethoxazole 1 each 04/05/19 18:00 04/06/19 06:13 Bactrim Ds PO 1 each Q12H LEANDRO Administration Nutrition/Malnutrition Assess - Dietary Evaluation Nutrition/Malnutrition Findings: Nutrition Notes Start: 04/04/19 11:06 Freq: Status: Active Protocol: Document 04/04/19 11:06 DW (Rec: 04/04/19 11:34 DW [id number]) Co-Sign 04/04/19 11:06 LP Nutrition Notes Need for Assessment generated from: MD Order,Education Initial or Follow up Assessment Current Diagnosis Diabetes,Hypertension Other Pertinent Diagnosis Hx Prostate Cancer Current Diet Regular Labs/Tests A1C: 11.7 Glu: 100 Pertinent Medications Reviewed Height 5 ft 7 in Weight 81 kg [place] Body Weight (kg) 67.27 BMI 27.9 Subjective/Other Information MD consult for DM education and ONS Pt stated he was recently dx with DM a few weeks ago. He stated he was given some education in the past. Pt stated he checks his BG TID. Pt also stated he receives meals through his insurance and consumes 3 meals/day. Pt consumed 100% of breakfast but does not want ONS. Pt also stated he has no recent wt loss. Burn Absent Trauma Absent GI Symptoms None Minimum of two criteria No physical signs of malnutrition #1 Nutrition Diagnosis Food and nutrition-related knowledge deficit Etiology pt had minimal knowledge of DM diet As Evidenced by Signs and Symptoms pt needed additional education and A1C 11.7 Is patient on ventilator? No Is Patient Ambulatory and/or Out of Bed Yes REE-([facility]-ambulatory/OOB) [ 2038.219 [id number]] Calculation Used for Recommendations [facility] Additional Notes PRO needs: 81-97g (1-1.2 g/kg) Fluid needs: 1 mL/kcal Nutrition Intervention Change Diet Order: Continue Current Diet Add Supplement/Snack (indicate name/kcal d/c Ensure /protein ) Teaching Recipient Patient Learning Readiness Good Teaching Methods Discussion,Handout Response to Teaching Verbalize understanding Education Handouts Provided CHO counting Barriers to Learning Physical,Age related RD phone number provided Yes Patient aware of follow up options Yes Goal #1 Adhere to DM diet Anticipated Discharge Needs: Consistent CHO Revisit per MD consult or patient Sign Off request:
[2019-04-06] MEDS ORDERED: VANCOMYCIN PHARMACY TO DOSE IV SCH (15:00)
[2019-04-06] MEDS ORDERED: VANCOMYCIN 1,750 MG in SODIUM CHLORIDE 0.9% 500 ML 500 ML IV ONE (15:00)
[2019-04-06] MEDS: ACETAMINOPHEN 325 MG TAB PO PRN (21:33)
[2019-04-07] MEDS ORDERED: VANCOMYCIN 1,250 MG in SODIUM CHLORIDE 0.9% 250ML 250 ML IV SCH ×2 (03:00→14:00)
[2019-04-07] MEDS: SULFAMETHOXAZOLE/TRIMETHOPRIM 800/160MG DS TAB PO SCH (06:55)
--- NOTE | 2019-04-07 08:25 | Event Note ---
Date: 04/07/[address] Villegas yesterday and reviewed all notes, imaging, and labs. Patient with large hematoma of left anterior lateral and posterior chest wall. There are some air bubbles in the collection of anterior chest wall. Hb has been trending down. VSS. Based on patient's history, I agree this is most likely a large hematoma from a muscle tear. Air in the collection and accompanying fevers indicate infection and hematoma will need to be evacuated. Agree with thoracic surgery eval and transfer to [place]. Patient has been accepted for transfer today. Continue supportive care.
[2019-04-07 11:12] VITALS: BP 118/74
[2019-04-07] MEDS: LISINOPRIL 20 MG TAB PO SCH (11:26)
[2019-04-07] MEDS: ASPIRIN EC 81 MG TAB PO SCH (11:26)
[2019-04-07] MEDS: FAMOTIDINE 20 MG TAB PO SCH (11:26)
[2019-04-07] MEDS: GABAPENTIN 400 MG CAP PO SCH (11:31)
[2019-04-07] MEDS: metFORMIN 500 MG TAB PO SCH (11:33)
[2019-04-07] MEDS: INSULIN NPH/REGULAR 70/30 INJ SUB-Q SCH (11:34)
[2019-04-07] MEDS: oxyCODONE /ACETAMINOPHEN 5-325MG TAB PO PRN (11:35)
--- NOTE | 2019-04-07 13:44 | Discharge Summary ---
Providers - Providers Date of Admission: 04/03/19 16:39 Date of discharge: 04/07/19 Attending physician: HADLEY BRANTLEY 04/04/19 16:49 Consult to Interventional Radiology [CONS] Routine Consulting Provider: PADMA LYN Reason For Exam: soft tissue left chest swelling Place consult to:: Dr. Lyn Notified:: Juanis Elizabeth RN Phone number called:: Was contact made?: Yes If yes, spoke with:: [facility] service Time called:: 17:30 Comment:: Dr. Connelly returned call @ [phone] 04/06/19 14:29 Consult to Physician [CONS] Routine Comment: Consulting Provider: AVELINA LAURA Physician Instructions: Reason For Exam: fevers. ?back abscess 04/06/19 14:59 Consult to Physician [CONS] Routine Comment: Consulting Provider: ALVARO RENEE Physician Instructions: I spoke with Reason For Exam: left lateral chest wall swelling?abscess Primary care physician: SATISH Sam YOUNG Hospitalization Condition: Stable Hospital course: Patient is a 63 yo man with a history of IDDM, hypertension, DM neuropathy, dyslipidemia, prostate cancer undergoing XRT and hormonal therapy who presents with syncopal episode. I spoke with Dr. Chris Connelly, Vascular surgeon, he believes there is a muscle tear causing hematoma from an injury, possible pectoralis muscle. I called [facility] at [phone], spoke with Jeanne. Need Thoracic surgeon evaluation. She will call me back. I spoke with Thoracic surgeon, Dr. Rincon, he wants patient transfer to [facility] under Hospitalist service. Now the Hospitalist will call me back. Dr. Jewell Martinez, Hospitalist, who has accepted to [facility]. per our General Surgeon: "Discussed patient with Dr. Brantley yesterday and reviewed all notes, imaging, and labs. Patient with large hematoma of left anterior lateral and posterior chest wall. There are some air bubbles in the collection of anterior chest wall. Hb has been trending down. VSS. Based on patient's history, I agree this is most likely a large hematoma from a muscle tear. Air in the collection and accompanying fevers indicate infection and hematoma will need to be evacuated. Agree with thoracic surgery eval and transfer to [facility]. Patient has been accepted for transfer today. Continue supportive care." CT head without contrast IMPRESSION: No evidence for pulmonary embolus. Trace bilateral pleural effusions. Large soft tissue fluid collection along the left lateral thoracic wall as described above. CTA chest IMPRESSION: No evidence for pulmonary embolus. Trace bilateral pleural effusions. Large soft tissue fluid collection along the left lateral thoracic wall as described above. Discharge Diagnoses: Syncope appears vasovagal: treat symptomatically Large Left chest/back soft tissue swelling: consulted IR, get ultrasound for possible drainage on Sunday Prostate Cancer: follow up with Oncologist JACINTA UTI/prostatitis: treat with iv rocephin, follow urine culture==>change ABX to Bactrim Hypertension: low salt diet Disposition: to [facility] Patient needs MRI of the brain/chest Disposition: [id number]/TX-[id number] ANOTHER TYPE HLTHCARE Time spent for discharge: 35 minutes Core Measure Documentation - Palliative Care Palliative Care/ Comfort Measures: Not Applicable - Core Measures Any of the following diagnoses?: none - VTE Discharge Requirements Deep Vein Thrombosis/Pulmonary Embolism Present on Admission: No Has pt received <5 days of overlap therapy or INR<2.0: No Anticoagulant overlap therapy prescribed at discharge: No Contraindication No Overlap Therapy order at DC: Not Indicated Exam - Physical Exam Narrative exam: Gen: WDWN, NAD, Awake, Alert, Orientated HEENT: NCAT, EOMI, PERRL, OP Clear Neck: supple, no adenopathy, no thyromegaly, no JVD CVS/Heart: RRR, normal S1S2, pulses present bilaterally Chest/Lungs: CTA B, Symmetrical chest expansion, good air entry bilaterally, left chest wall tenderness GI/Abdomen: soft, NTND, good bowel sounds, no guarding or rebound /Bladder: no suprapubic tenderness, no CVA or paraspinal tenderness Extermity/Skin: large tender moveable swelling left scapula area MSK: FROM x 4 Neuro: CN 2-12 grossly intact, no new focal deficits Psych: calm - Constitutional Vitals: Temp Pulse Resp BP Pulse Ox 99.1 F 88 18 118/74 100 04/07/19 11:09 04/07/19 11:26 04/07/19 11:09 04/07/19 11:09 04/07/19 11:09 Plan Activity: up only with assistance, other (no strenous activity) Diet: low salt, diabetic Additional Instructions: Patient needs MRI of the brain/chest Follow up with: SATISH BUI MD [Primary Care Provider] - 3-5 Days
== END 2019-04-07 14:50 | disposition short-term general hospital (02) | DRG 312 ==
LOC: ED 10:01 → OBSVTOIN 16:39 → 4A 16:39
PROVIDERS: ADMIT Internal Medicine; ATTEND Internal Medicine
DX: R55 Syncope and collapse (principal); N39.0 Urinary tract infection, site not specified; I10 Essential (primary) hypertension; S20.212A Contusion of left front wall of thorax, initial encounter; N41.9 Inflammatory disease of prostate, unspecified; B95.61 Methicillin susceptible Staphylococcus aureus infection as the cause of diseases classified elsewhere; C61 Malignant neoplasm of prostate; E11.42 Type 2 diabetes mellitus with diabetic polyneuropathy; E78.5 Hyperlipidemia, unspecified; Y93.89 Activity, other specified; Y92.89 Other specified places as the place of occurrence of the external cause; Y99.8 Other external cause status; Z79.4 Long term (current) use of insulin; Z90.49 Acquired absence of other specified parts of digestive tract; Z79.899 Other long term (current) drug therapy; Z72.89 Other problems related to lifestyle; Z82.49 Family history of ischemic heart disease and other diseases of the circulatory system
CPT/HCPCS: 36415; 70450; 71275; 76604; 80048; 80053; 81001; 82962; 83036; 83735; 84100; 84484; 85007; 85014; 85018; 85025; 85027; 85379; 87040; 87076; 87086; 87186; 93005; 93010; 93880; 96374; G0378; A9270-GY; J0696; J1815; J3370; J7030; J7040; J7050; Q9967